=== PATIENT | female | born 1970 | race Caucasian/White ===

== ENCOUNTER 2022-03-21 07:42 | Emergency (ER) | payer OTHER, SELFPAY ==
--- NOTE | ~2022-03-21 | XR_ITS ---
EXAMINATION: XR shoulder LT min 2V DATE: 03/21/2022 08:13 INDICATION: Left shoulder pain. TECHNIQUE: 4 views of left shoulder were obtained. COMPARISON: Left shoulder radiographs 08/24/2016 FINDINGS: Bone alignment is normal. No fracture. There is mild osteoarthritis of glenohumeral joint a nd acromioclavicular joint. IMPRESSION: 1. Mild polyarticular osteoarthritis. Reviewed, dictated and finalized at location A. MENT IMAGING SPECIALIST
[2022-03-21 07:49] VITALS: BP 159/95; PULSE 72; RESP 14; TEMP 36.1; O2SAT 100
--- NOTE | 2022-03-21 07:56 | ED.EXTPRO ---
HPI - Extremity Problem General Chief complaint: Extremity Injury, Upper Stated complaint: L SHOULDER/ARM INJURY S/P FALL Time Seen by Provider: 03/21/22 07:44 History of Present Illness HPI Narrative: 52-year-old female presented to the emergency department for evaluation of left shoulder pain. Patient reports she had a ground-level fall this morning caused by tripping over the dogs resulting in a left arm injury. Patient denies striking her head denies any loss of consciousness. Patient reports a prior history of a partial rotator cuff tear in one of her shoulders, she is unsure which one. Patient has had previous follow-up with orthopedic physician at [facility]. Patient did take ibuprofen for pain control prior to arrival. Related Data Allergies Allergy/AdvReac Type Severity Reaction Status Date / Time cefuroxime Allergy Unknown Verified 11/11/10 12:30 Penicillins Allergy Unknown Verified 05/24/17 14:53 Review of Systems Review of Systems: CONSTITUTIONAL: Denies fever, chills, or sweats. EYES: Denies visual changes, redness, or discharge. ENT: Denies rhinorrhea, congestion, sore throat, or otalgia. CARDIOVASCULAR: Denies chest pain, palpitations, or edema. RESPIRATORY: Denies cough or dyspnea. GASTROINTESTINAL: Denies abdominal pain, nausea, vomiting, or diarrhea. GENITOURINARY: Denies dysuria or hematuria. SKIN: Denies rash or itching. MUSCULOSKELETAL: Left shoulder pain NEUROLOGIC: Denies headache, numbness, or weakness. [facility] Family History Family History (Updated 05/24/17 @ 14:55 by DOCTOR UNKNOWN) Grandparent Diabetes mellitus Acute myocardial infarction Carcinoma of colon Family history of coronary artery disease Social History Social History Smoking status: Never smoker Alcohol intake: current Exam Narrative: APPEARANCE: Well appearing, no pain, no distress, well-nourished. HEAD: normocephalic, atraumatic. EYES: PERRLA/EOMI, conjunctivae clear. NOSE: Normal no drainage NECK: Supple. No adenopathy, no masses. RESPIRATORY: Airway patent, respirations nonlabored. Clear to auscultation bilaterally, no rales, rhonchi, wheezing. CARDIOVASCULAR: Regular rate and rhythm without murmurs rubs or gallops. ABDOMINAL: Soft, nontender, nondistended, normal bowel sounds MUSCULOSKELETAL: No tenderness to wrist elbow or humerus, left shoulder deformity. Neurovascular intact NEURO: Alert. Cranial nerves II through XII intact. Good gait. Good coordination SKIN: Warm, dry. Normal Color Course Course Emergency Course: X-ray was ordered to rule out acute fracture or dislocation. X-ray showed no acute fracture or dislocation. Patient took ibuprofen prior to arrival and while patient was here she does continue to feel improved. Patient does have limited active range of motion of the left arm and full range of motion with passive movement. Suspected rotator cuff injury due to patient's history and negative films. Patient was encouraged to have close follow-up with her orthopedic physician. Patient was provided a pop sling for comfort. Patient was also informed to take Tylenol and ibuprofen for pain control and was provided Flexeril for muscle spasm. Vital Signs Vital signs: Vital Signs Temperature 97 F L 03/21/22 07:49 Pulse Rate 72 03/21/22 07:49 Respiratory Rate 14 03/21/22 07:49 Blood Pressure 159/95 H 03/21/22 07:49 Pulse Oximetry 100 03/21/22 07:49 Oxygen Delivery Room Air 03/21/22 07:49 Temperature 97 F L 03/21/22 07:49 Pulse Rate 72 03/21/22 07:49 Respiratory Rate 14 03/21/22 07:49 Blood Pressure 159/95 H 03/21/22 07:49 Pulse Oximetry 100 03/21/22 07:49 Oxygen Delivery Room Air 03/21/22 07:49 Discharge Plan Discharge Clinical Impression: Injury of shoulder Qualifiers: Encounter type: initial encounter Laterality: left Qualified Code(s): S49.92XA - Unspecified injury of left shoulder and upper arm, initial encounter Patient Disposi
[2022-03-21] MEDS: CYCLOBENZAPRINE HCL 10 MG TABLET PO (09:17)
== END 2022-03-21 09:29 | disposition home or self-care (01) ==
PROVIDERS: Emergency Provider Emergency Medicine
DX: S49.92XA Unspecified injury of left shoulder and upper arm, initial encounter (principal); W01.0XXA Fall on same level from slipping, tripping and stumbling without subsequent striking against object, initial encounter
CPT/HCPCS: 73030; 99283; A4565; A9270

== ENCOUNTER 2022-03-22 16:46 | Emergency (ER) | payer OTHER, SELFPAY ==
--- NOTE | ~2022-03-22 | XR_ITS ---
EXAM: XR shoulder LT min 2V DATE: 03/22/2022 17:08 HISTORY: in er yesterday with shoulder dislocation/ arm out again . COMPARISON: 03/21/2022. FINDINGS: Normal mineralization. Anterior and inferior dislocation of the left humeral head relative to the glenoid. No fracture. No lytic or blastic lesion. Mild AC joint and glenohumeral joint osteoa rthritis. No erosion or periosteal change. Soft tissues within normal limits. IMPRESSION: Anterior left shoulder dislocation. Reviewed, dictated and finalized at location K. IGURATION MANAGEMENT CONSULTANT
[2022-03-22 16:50] VITALS: BP 172/97; PULSE 60; RESP 16; TEMP 35.9; O2SAT 100
--- NOTE | 2022-03-22 17:27 | ED.GENADULT ---
HPI - General Adult General Chief complaint: Extremity Injury, Upper Stated complaint: INJURED L SHOULDER Source: patient Mode of arrival: ambulatory Limitations: no limitations History of Present Illness HPI narrative: Patient presents for evaluation of left shoulder pain. Yesterday she fell after tripping over her dog while her arms were outstretched. She was seen in the emergency department at [facility] after the fall. She thought she had a shoulder dislocation. X-ray showed mild polyarticular osteoarthritis without fracture or dislocation. She was placed in a sling and discharged home. Today she was lifting her arms up over her head in an attempt to perform exercises for suspected rotator cuff injury. At that time she suspects she dislocated her left shoulder. Since that time she has experienced 10/10 pain in the affected joint. She has decreased range of motion. She is right-hand dominant. No additional complaints or concerns.. Related Data Allergies Allergy/AdvReac Type Severity Reaction Status Date / Time cefuroxime Allergy Unknown Hives Verified 03/22/22 16:54 Penicillins Allergy Unknown Hives Verified 03/22/22 16:54 Review of Systems Review of Systems: CONSTITUTIONAL: Denies fever, chills, or sweats. EYES: Denies visual changes, redness, or discharge. ENT: Denies rhinorrhea, congestion, sore throat, or otalgia. CARDIOVASCULAR: Denies chest pain, palpitations, or edema. RESPIRATORY: Denies cough or dyspnea. GASTROINTESTINAL: Denies abdominal pain, nausea, vomiting, or diarrhea. GENITOURINARY: Denies dysuria or hematuria. SKIN: Denies rash or itching. MUSCULOSKELETAL: reports left shoulder pain with associated decreased range of motion. NEUROLOGIC: Denies headache, numbness, dizziness, or weakness. PSYCHIATRIC: Denies anxiety or depression. [facility] Past Medical History Medical History Rotator cuff injury Surgical History Surgical History History of repair of rotator cuff Family History Family History Grandparent Diabetes mellitus Acute myocardial infarction Carcinoma of colon Family history of coronary artery disease Social History Social History Smoking status: Never smoker Alcohol intake: current Living arrangements: with family Gender identity (if verbalized by the patient): Female Sexual Orientation (if Verbalized by the Patient): Straight or Heterosexual Spiritual care concerns: No Exam Narrative: GENERAL: Well-appearing, well-nourished, and in no acute distress. HEAD: Normocephalic, atraumatic. EYES: PERRLA and EOMI. ENT: Nares clear, no rhinorrhea or epistaxis. Mucous membranes moist. Oropharynx without tonsillar hypertrophy exudate or other lesions. Bilateral TMs pearly mason nonbulging NECK: Supple. No adenopathy or masses. No carotid bruits or JVD CHEST: Clear to auscultation. No respiratory distress. No wheezes rales or rhonchi HEART: Regular rate and rhythm. No murmur heard. Normal peripheral pulses. ABDOMEN: Soft, nontender, nondistended, normal active bowel sounds. EXTREMITIES:She is guarding the left upper extremity. She has decreased active range of motion of the left upper extremity at the shoulder joint. Further exam limited 2/2 pain SKIN: Warm, dry, no rash. NEURO: No focal deficits. Alert and oriented x3. PSYCH: anxious Course Course Emergency Course: This is a 52-year-old female who presented for evaluation of left shoulder pain with associated decreased range of motion. X-ray shows anterior left shoulder dislocation. I did offer to attempt to reduce it here but did not have analgesia to offer patient outside of Toradol. I recommended she go to the emergency department for further evaluation and treatment. Nyasia
== END 2022-03-22 17:20 | disposition short-term general hospital (02) ==
PROVIDERS: Emergency Provider Nurse Practitioner
DX: S43.015A Anterior dislocation of left humerus, initial encounter (principal); X58.XXXA Exposure to other specified factors, initial encounter
CPT/HCPCS: 73030; 99213; G0463

== ENCOUNTER 2022-03-22 17:37 | Emergency (ER) | payer OTHER, SELFPAY ==
--- NOTE | ~2022-03-22 | XR_ITS ---
EXAM: XR shoulder LT min 2V DATE: 03/22/2022 18:09 HISTORY: reduction . COMPARISON: Same date at 5:08 PM and 03/21/2022 at 8:07 AM. FINDINGS/IMPRESSION: Successful interval left shoulder reduction. No osseous fracture detected. Reviewed, dictated and finalized at location K. TIVE WRITING PROFESSOR
[2022-03-22 18:09] VITALS: BP 157/89; PULSE 102; RESP 16; O2SAT 100
--- NOTE | 2022-03-22 18:43 | ED.GENADULT ---
HPI - General Adult General Chief complaint: Extremity Injury, Upper Stated complaint: left shoulder dislocation Time Seen by Provider: 03/22/22 17:48 History of Present Illness HPI narrative: Patient is a 52-year-old female who presents ER with shoulder dislocation. Diagnosed on x-ray at the urgent care. Reports she was performing shoulder exercises due to an injury yesterday when she had sudden onset pain and decreased range of motion. No fevers chills or sweats. No numbness or tingling. No additional concerns. Related Data Allergies Allergy/AdvReac Type Severity Reaction Status Date / Time cefuroxime Allergy Unknown Hives Verified 03/22/22 16:54 Penicillins Allergy Unknown Hives Verified 03/22/22 16:54 Review of Systems Musculoskeletal: Musculoskeletal: Reports arthralgias and Denies joint swelling Neurologic: Denies focal weakness and Denies numbness PMFSH Past Medical History Medical History Rotator cuff injury Surgical History Surgical History History of repair of rotator cuff Family History Family History Grandparent Diabetes mellitus Acute myocardial infarction Carcinoma of colon Family history of coronary artery disease Social History Social History Smoking status: Never smoker Alcohol intake: current Living arrangements: with family Gender identity (if verbalized by the patient): Female Sexual Orientation (if Verbalized by the Patient): Straight or Heterosexual Spiritual care concerns: No Exam Narrative: GENERAL: Well-appearing, well-nourished, and in no acute distress. HEAD: Normocephalic, atraumatic. HEART: Regular rate and rhythm. Normal peripheral pulses. EXTREMITIES: Focused exam of left shoulder reveals normal range of motion without deformity and no tenderness. No bruising or redness of the shoulder. Neurovascular intact distal to the left shoulder. SKIN: Warm, dry, no rash. NEURO: Alert and oriented x3. PSYCH: Normal mood and affect. Course Course Emergency Course: Shoulder seems to have reduced on its own. Placed in shoulder immobilizer. Discussed need for follow-up with orthopedic surgery for further evaluation. Patient verbalized understanding. Patient does not require any additional pain medication for home Vital Signs Vital signs: Vital Signs Pulse Rate 102 H 03/22/22 18:09 Respiratory Rate 16 03/22/22 18:09 Blood Pressure 157/89 H 03/22/22 18:09 Pulse Oximetry 100 03/22/22 18:09 Oxygen Delivery Room Air 03/22/22 18:09 Pulse Rate 102 H 03/22/22 18:09 Respiratory Rate 16 03/22/22 18:09 Blood Pressure 157/89 H 03/22/22 18:09 Pulse Oximetry 100 03/22/22 18:09 Oxygen Delivery Room Air 03/22/22 18:09 Medical Decision Making Vital Signs Vital Signs: Vital Signs Pulse Rate 102 H 03/22/22 18:09 Respiratory Rate 16 03/22/22 18:09 Blood Pressure 157/89 H 03/22/22 18:09 Pulse Oximetry 100 03/22/22 18:09 Oxygen Delivery Room Air 03/22/22 18:09 Pulse Rate 102 H 03/22/22 18:09 Respiratory Rate 16 03/22/22 18:09 Blood Pressure 157/89 H 03/22/22 18:09 Pulse Oximetry 100 03/22/22 18:09 Oxygen Delivery Room Air 03/22/22 18:09 Imaging Data Radiologist's impression: DATE: 03/22/2022 18:09 HISTORY: reduction . COMPARISON:? Same date at 5:08 PM and 03/21/2022 at 8:07 AM. FINDINGS/IMPRESSION: Successful interval left shoulder reduction. No osseous fracture detected. Discharge Plan Discharge Clinical Impression: Closed dislocation of left shoulder Patient Disposition: Home, Self-Care Condition: Stable Instructions: Shoulder Dislocation (ED), Shoulder Immobilizer (ED) Additional Instructions: Adela your shoulder immobilizer and follow-u
[2022-03-22 19:27] VITALS: BP 111/57; PULSE 66; RESP 18; O2SAT 99
== END 2022-03-22 19:28 | disposition home or self-care (01) ==
LOC: ANHED 18:46
PROVIDERS: Emergency Provider Emergency Medicine
DX: S43.005A Unspecified dislocation of left shoulder joint, initial encounter (principal); X50.9XXA Other and unspecified overexertion or strenuous movements or postures, initial encounter
CPT/HCPCS: 73030; 99283

== ENCOUNTER 2024-04-16 09:25 | Emergency (ER) | payer OTHER, SELFPAY ==
[2024-04-16] VITALS (13 sets, daily range): BP systolic 115–142; BP diastolic 77–99; PULSE 55–80; RESP 14–21; TEMP 36.5; O2SAT 97–100
--- NOTE | ~2024-04-16 | XR_ITS ---
XR chest 2V Ordering provider: Patrick Luz MD History: 54 years Female with . POSTERIOR CHEST PAIN TRAVELED ANTERIOR TODAY, CHILLS STARTED . Comparison: May 11, 2007 FINDINGS: MEDIASTINUM: The cardiac silhouette is not enlarged. LUNGS: No infiltrates, effusions or pneumothorax. OTHER: No free air under the diaphragm. IMPRESSION: No acute cardiopulmonary pathology. Reviewed, dictated and finalized at location A.
--- NOTE | 2024-04-16 09:29 | ECG_ITS ---
Test Date: 2024-04-16 09:36:44 Measurements Intervals [place] Rate: 61 P: 60 AL: 132 QRS: 18 QRSD: 82 T: 9 QT: 419 QTc: 425 Interpretive Statements SINUS RHYTHM WITH SINUS ARRHYTHMIA NONSPECIFIC ST AND T WAVE ABNORMALITY No previous ECG available for comparison Electronically Signed On 04-16-2024 14:58:47 CDT by Henrik Ochoa M.D.
[2024-04-16 09:57] LABS: Hematocrit 44.7 % (37.0-47.0); Immature Granulocyte Absolute 0.01 K/mm3 (0.00-0.031); Immature Granulocyte Percent A 0.3 % (0-0.5); Lymphocytes Absolute Auto 1.21 K/mm3 (0.9-3.2); Lymphocytes Percent Auto 31.2 % (18.3-44.2); Mean Corpuscular HGB Conc 33.6 g/dl (32-36); Mean Corpuscular Hemoglobin 30.1 pg (26-34); Mean Corpuscular Volume 89.8 fl (80-100); Mean Platelet Volume 9.8 fl (7.4-10.4); Monocytes Absolute Auto 0.4 K/mm3 (0.1-0.6); Monocytes Percent Auto 10.1 % (2.6-8.5); Neutrophils Absolute Auto 2.2 K/mm3 (1.3-6.7); Neutrophils Percent Auto 56.4 % (45.5-73.1); Platelet Count Result 255 k/mm3 (150-375); Red Blood Count 4.98 M/mm3 (4.2-5.4); Red Cell Distribution Width 13.3 % (11.5-14.5); White Blood Count 3.9 K/mm3 (4.5-10.0)
[2024-04-16 10:12] LABS: Alanine Aminotransferase 37 U/L (6-35); Alkaline Phosphatase 76 U/L (38-126); Anion Gap 13 mmol/L (4-12); Aspartate Amino Transferase 37 U/L (14-36); Bilirubin,Total 0.8 mg/dL (0.2-1.3); Blood Urea Nitrogen 17 mg/dL (7-17); Calcium 9.7 mg/dL (8.4-10.2); Carbon Dioxide 28 mmol/L (22-30); Chloride 99 mmol/L (98-107); Estimated CRCL calculation 58 ml/min; Estimated Glomerular Filt Rate > 60; Glucose 107 mg/dL (65-110); Potassium 3.9 mmol/L (3.4-5.0); Sodium 140 mmol/L (137-145)
--- OUTSIDE RECORDS SUMMARY | 2024-04-16 10:13 | XMS_ITS | Referral Summary ---
Author Organization [facility] Address [address] [place] [address] Care Team Providers Care Technician Test Systems Name Role Phone Сергей Cota MD Primary Care Provider Encounters Date Type Department Care Team Description 03/12/2024 Telephone [facility] Ob[facility]s [facility] Gynecology [address] [place] [address] Marielena Pereira Scheduling Appointments (/) 02/23/2024 Orders Only [facility] [address] [facility] 7th Floor [address] [place] [address] Rikki Alvarado RN Abnormal mammogram (Primary Dx) 01/26/2024 3:00 PM FUNERAL PRE ARRANGEMENT SPECIALIST Office Visit [facility] Obstetrics [facility] Gynecology [address] [facility] 1st Floor [address] [place] [address] Xiao Gaxiola MD Abnormal mammogram (Primary Dx) 01/22/2024 [facility] [address] [facility] [address] [facility] [place] [address] Сергей Cota MD Lab Results from Last 3 Months Allergies Active Allergy Reactions Criticality Noted Date Comments Cefazolin Unknown 10/31/2017 Cephalexin Rash Medium 10/31/2017 Penicillins Rash Medium Medications mmbfnqpj-lggh-e in-folic acid 18-0.4 mg tabletIndicatio ns:Mineral Deficiency Prevention,Ana min Deficiency Prevention Take 1 tablet by mouth nightly. Active calcium citrate malate-vit D3 250-100 mg-unit tabletIndicatio ns:Vitamin D Deficiency Take 1 tablet by mouth nightly. Active sodium chloride (OCEAN) 0.65 % nasal sprayIndication s:Dry Nose Administer 1 spray into each nostril as needed Active vitamin E (AQUASOL E) 400 unit capsule 9 Active vitamin B complex capsule 9 Active lysine 500 mg tablet 9 Active biotin 10 mg tablet 9 Active Active Problems Problem Noted Date Diagnosed Date Class 1 obesity without seri ous comorbidity with body mass index (BMI) of 31.0 to 31.9 in adult 07/11/2023 Assessment & Plan (07/11/2023 10:16 AM CDT): Weight increasing despite diet and exercise. We discussed medical options for weight loss. We decided to start Zepbound 2.5 mg weekly. We discussed efficacy and possible side effects, including hypoglycemia. We can increase the dose every 4 weeks as tolerated if she has not lost 10 lbs or more. Hyperlipidemia 07/28/2022 Assessment & Plan (07/11/2023 10:15 AM CDT): Lipids have improved. Low ASCVD risk. No need for pharmacotherapy. Assessment & Plan (07/28/2022 12:44 PM CDT): Her 10-year risk of ASCVD is 1.9% per the ACC/AHA risk calculator, which is considered low risk. No compelling indication for a statin at this time. Recommend low fat, low cholesterol diet and exercise at least 30 minutes per day, 5 days per week. Encounter for health maintenance examination in adult 03/09/2022 Assessment & Plan (03/09/2022 4:03 PM FUNERAL PRE ARRANGEMENT SPECIALIST): Recommend healthy diet and regular exercise. Discussed immunization against tetanus, influenza and COVID-19. Discussed screening for cervical cancer. She has been following up with OBGYN. Reviewed Pap smear from 04/2021. Discussed screening for colon cancer here discussed screening for breast cancer. Screening for diabetes mellitus 03/09/2022 Assessment & Plan (03/09/2022 4:03 PM FUNERAL PRE ARRANGEMENT SPECIALIST): Discussed screening for diabetes Screening for colon cancer 03/09/2022 Assessment & Plan (03/09/2022 4:04 PM FUNERAL PRE ARRANGEMENT SPECIALIST): Discussed screening for colon cancer. Ordering a colonoscopy. Factor V Leiden carrier 03/09/2022 Overweight 03/09/2022 Assessment & Plan (03/09/2022 4:04 PM FUNERAL PRE ARRANGEMENT SPECIALIST): Recommend weight loss through healthy diet and regular exercise. Recommended dietitian referral. We will follow-up with A1c. She is interested in medication for weight loss. Postoperative pain after spinal surgery 03/08/19 19 Abnormal mammogram 12/11/2017 Assessment & Plan (01/26/2024 3:49 PM FUNERAL PRE ARRANGEMENT SPECIALIST): Pt with history of abnormal MMGs and questioning the utility of routine screening MMGs due to persistent reads of having heterogenously dense breasts. Apr 2021 last MMG ordered as a Dx MMG The breasts are heterogenously dense, which may obscure small masses.Otherwise, normal imaging at this time. S/p R core needle bx: 2018 the RIGHT breast demonstrates breast tissue with fibrotic apocrine lined cyst and adjacent fibrosis and fat necrosis. Will confirm with breast health ctr what screening modality would be the best option for this patient to consider since she is very reluctant to desire a screening MMG that will inevitably return back abnormal and then will require a Dx MMG. Lumbar radiculopathy 12/08/2017 Overview (12/08/2017): Added automatically from request for surgery [id number] DDD (degenerative disc disease), lumbar 12/09/19 18 Overview (12/08/2017): Added automatically from request for surgery [id number] Spondylolisthesis of lumbosacral region 11/11/19 18 Overview (11/10/2017): Added automatically from request for surgery [id number] Annular tear of lumbar disc 10/31/2017 Chronic bilateral low back pain without sciatica 10/31/2017 Discogenic low back pain 10/31/2017 Other chronic pain 10/31/2017 Factor V Leiden 01/08/2013 Assessment & Plan (03/09/2022 4:03 PM FUNERAL PRE ARRANGEMENT SPECIALIST): She has a family history of factor 5 laden deficiency. 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 Immunizations Immunization Administration Dates Next Due Influenza, Quadrivalent, Spl it, Preservative Free, Intramuscular 12/01/2021,11/24/2020 Influenza, Unspecified 01/08/2013 Tdap 03/09/2022 ZOSTER Recombinant 02/01/2022,12/01/2021 Social History Tobacco Use Types Packs/Day Years Used Date Smoking Tobacco: Never Smokeless Tobacco: Never Tobacco Cessation:Counseling Given: Not Answered Alcohol Use Standard Drinks/Week Comments Yes 0 (1 standard drink = 0.6 oz pur e alcohol) twice a month AUDIT-C Answer Date Recorded Q1: How often do you have a drink containing alc ohol? 2-4 times a month 11/30/2022 Q2: How many drinks containi ng alcohol do you have on a typical day when you are drinking? 1 or 2 11/30/2022 Q3: How often do you have si x or more drinks on one occasion? Never 11/30/2022 PHQ-2 Answer Date Recorded PHQ-2 Total Score (If total score is 3 or more points, staff should administer the PHQ-9) 0 03/09/2022 Personal Safety Answer Date Recorded Have you ever been in or are you currently in a harmful physical or emotional relationship or is someone making you feel afraid or unsafe? Denies 11/30/2022 Comments No Sex and Gender Information Value Date Recorded Sex Assigned at Not on file Legal Sex Female 11:23 AM FUNERAL PRE ARRANGEMENT SPECIALIST Gender Identity Not on file Sexual Orientation Not on file Last Filed Vital Signs Vital Sign Reading Time Taken Comments Blood Pressure 118/81 01/26/2024 2:51 PM FUNERAL PRE ARRANGEMENT SPECIALIST Pulse 64 01/26/2024 2:51 PM FUNERAL PRE ARRANGEMENT SPECIALIST Temperature 36.2 C (97.2 F) 11/30/2022 1:05 PM CDT Respiratory Rate 16 03/06/2018 8:45 AM FUNERAL PRE ARRANGEMENT SPECIALIST Oxygen Saturation 99% 11/17/2023 9:58 AM CDT Inhaled Oxygen Concentration - - Weight 59.7 kg (131 lb 9.6 oz) 01/26/2024 2:51 P M FUNERAL PRE ARRANGEMENT SPECIALIST Height 160 cm (5' 2.99 ) 01/26/2024 2:51 PM FUNERAL PRE ARRANGEMENT SPECIALIST Body Mass Index 23.32 01/26/2024 2:51 PM FUNERAL PRE ARRANGEMENT SPECIALIST Plan of Treatment Scheduled Procedures Name Priority Associated Diagnoses Date/Ti az COLONOSCOPY Colon cancer screening COLONOSCOPY Colon cancer screening Medical Devices Implanted Type Area Opinion Polls Survey Worker Device Identifier Shelf Expiration Date Model / Serial / Lot Medtronic Sofamor Danek [id number] Mastergraft Block Void Filler Substitute 20ml Bone Graft Matrix - [id number] Implanted:Qty: 1 on 03/01/2018 by Reji Marinelli MD at [facility] N/A: Spine Lumbar Medtronic Sofamor Danek [id number] 02/06/2020 [id number] / / [id number] Medtronic Inc [id number] 8.5mm 70mm Multiaxial Cannulated Thoracolumbar Screw Bone - [id number] Implanted:Qty: 1 on 03/01/2018 by Reji Marinelli MD at [facility] N/A: Spine Lumbar Medtronic Inc [id number] / / Medtronic Sofamor Danek [id number] Infuse 18mm 26mm Absorbable Sponge Sterile Water Syringe Needle - [id number] Implanted:Qty: 1 on 03/01/2018 by Reji Marinelli MD at [facility] N/A: Spine Lumbar Medtronic Sofamor Danek 07/07/2019 [id number] / / [id number] Medtronic Sofamor Danek [id number] Infuse 18mm 26mm Absorbable Sponge Sterile Water Syringe Needle - [id number] Implanted:Qty: 1 on 03/01/2018 by Reji Marinelli MD at [facility] N/A: Spine Lumbar Medtronic Sofamor Danek 07/07/2019 [id number] / / [id number] [employer] [id number] - [id number] - [id number] Implanted:Qty: 1 on 03/01/2018 by Reji Marinelli MD at [facility] N/A: Spine Lumbar [employer] 01/12/2023 [id number] / [id number] / Medtronic Sofamor Danek [id number] Solera Cd Horizon 6.5mm 50mm Multiaxial Spine Screw Bone Cocr - [id number] Implanted:Qty: 5 on 03/01/2018 by Reji Marinelli MD at [facility] N/A: Spine Lumbar Medtronic Sofamor Danek [id number] / / Medtronic Sofamor Danek [id number] 5.5mm 55mm Multiaxial Spine Screw Bone Cocr 5.5mm Demetrius - [id number] Implanted:Qty: 1 on 03/01/2018 by Reji Marinelli MD at [facility] N/A: Spine Lumbar Medtronic Sofamor Danek [id number] / / Medtronic Sofamor Danek [id number] Cd Horizon Break Off Spinal Screw Set Titanium Nonsterile 5.5 Mm - [id number] Implanted:Qty: 7 on 03/01/2018 by Reji Marinelli MD at [facility] N/A: Spine Lumbar Medtronic Sofamor Danek [id number] / / Medtronic Sofamor Danek [id number] Cd Horizon 5.5mm 500mm Line Straight Demetrius Spinal Titanium - [id number] Implanted:Qty: 1 on 03/01/2018 by Reji Marinelli MD at [facility] N/A: Spine Lumbar Medtronic Sofamor Danek [id number] / / Explanted Type Area Opinion Polls Survey Worker Device Identifier Shelf Expiration Date Model / Serial / Lot Medtronic Sofamor Danek [id number] Solera Cd Horizon 6.5mm 55mm Multiaxial Spine Screw Bone Cocr - [id number] Explanted:Qty: 1 on 03/01/[address] [facility] N/A: Spine Lumbar Medtronic Sofamor Danek [id number] / / Procedures Procedure Name Priority Date/Time Associated Diagnosis Comments THYROID FUNCTION CASCADE Routine 01/19/2024 8:58 AM FUNERAL PRE ARRANGEMENT SPECIALIST Hyperlipidemia, unspecified hyperlipidemia type COMPREHENSIVE METABOLIC PANEL Routine 01/19/2024 8:58 AM FUNERAL PRE ARRANGEMENT SPECIALIST Hyperlipidemia, unspecified hyperlipidemia type COLONOSCOPY 11/30/2022 12:27 PM CDT DIAGNOSTIC MAMMOGRAM BILATERAL W LISSETTE Schedule Routine, Read Routine (OP Routine) 06/11/2021 11:07 AM CDT Dense breast tissue on mammogram PAP AND HIGH RISK HPV, REFLEX TO GENOTYPING Routine 04/29/2021 10:45 AM CDT Routine gynecological examination from Last 3 Months or Most Recently Relevant to Health Maintenance Results * Thyroid Function [place] (01/19/2024 8:58 AM FUNERAL PRE ARRANGEMENT SPECIALIST) Pathologist [facility] TSH 1.850 0.450 - 4.500 uIU/mL [facility] - 01 Comment: No apparent thyroid disorder. Additional testing not indicated. In rare instances, Secondary Hypothyroidism as well as Subclinical Hypothyroidism have been reported in some patients with normal TSH values. Blood 01/19/2024 8:58 AM FUNERAL PRE ARRANGEMENT SPECIALIST 01/19/2024 Narrative [facility] - 01/20/2024 8:12 AM FUNERAL PRE ARRANGEMENT SPECIALIST Performed at: [address] [place], [place] [id number] Rock Mason Apprentice: Amor Case PhD, Phone: [phone] us Madeline Juarez AIR LIAISON AND SPECIAL STAFF LAB BLOOD ORDERABLES Final Re sult [facility] - 01 * Comprehensive metabolic panel (01/19/2024 8:58 AM FUNERAL PRE ARRANGEMENT SPECIALIST) Pathologist [facility] Glucose 96 70 - 99 mg/dL [facility] - 01 BUN 16 6 - 24 mg/dL [facility] - 01 Creatinine, Serum 0.89 0.57 - 1.00 mg/dL [facility] - 01 eGFR 77 >59 mL/min/1.73 [facility] - 01 BUN/creat ratio 18 9 - 23 [facility] - 01 Sodium 141 134 - 144 mmol/L [facility] - 01 Potassium, sr 3.9 3.5 - 5.2 mmol/L [facility] - 01 Chloride 103 96 - 106 mmol/L [facility] - 01 CO2 24 20 - 29 mmol/L [facility] - 01 Calcium 9.7 8.7 - 10.2 mg/dL [facility] - 01 Protein, sr 6.5 6.0 - 8.5 g/dL [facility] - 01 Albumin 4.7 3.8 - 4.9 g/dL [facility] - 01 Globulin, Total 1.8 1.5 - 4.5 g/dL [facility] - 01 Bilirubin, Total 0.3 0.0 - 1.2 mg/dL [facility] - 01 Alk phos 71 44 - 121 IU/L [facility] - 01 AST 30 0 - 40 IU/L [facility] - 01 ALT 28 0 - 32 IU/L [facility] - 01 Blood 01/19/2024 8:58 AM FUNERAL PRE ARRANGEMENT SPECIALIST 01/19/2024 Narrative [facility] - 01/20/2024 8:12 AM FUNERAL PRE ARRANGEMENT SPECIALIST Performed at: 01 - [facility] [id number] Rock Mason Apprentice: Amro Case PhD, Phone: [phone] us Madeline Juarez AIR LIAISON AND SPECIAL STAFF LAB BLOOD ORDERABLES Final Re sult [facility] - 01 * COLONOSCOPY (11/30/2022 12:27 PM CDT) Anatomical Region Laterality Modality Other Narrative Procedure Note Miles Lopez MD - 11/30/2022 12:27 PM CDT ENDOSCOPY LAB Patient Name: Humaira English Procedure Date: 11/30/2022 12:27PM Date of : 1970 Admit Type: Outpatient Age: 52 Gender: Female Attending MD: Miles Lopez M.D. Room: [facility] ENDOSCOPY ROOM 03 Note Status: Finalized Procedure: Colonoscopy Indications: Screening for colorectal malignant neoplasm, Thisis the patient's first colonoscopy Providers: Miles Lopez M.D. Referring MD: Kirk Bean M.D. Medicines: Monitored Anesthesia Care Complications: No immediate complications. Estimated Blood Loss: Estimated blood loss: none. Procedure: Pre-Anesthesia Assessment: - Prior to the procedure, a History and Physicalwas performed, and patient medications, allergies and sensitivities were reviewed. The patient'stolerance of previous anesthesia was reviewed. - The risks and benefits of the procedure and the sedation options and risks were discussed with the patient. All questions were answered and informed consent was obtained. - Immediately prior to administration ofmedications, the patient was re-assessed for adequacy to receive sedatives. The benefits, risks and alternatives of theprocedure and sedation were discussed and informed consentwas obtained. All questions were answered. Please referto the signed informed consent document in the medical record. The scope was passed under direct vision.The [id number] was introduced through the anusand advanced to the terminal ileum. The colonoscopy was performed without difficulty. The patient tolerated the procedure well. The quality of the bowel preparation was evaluated using the BBPS (BostonBowel Preparation Scale) with scores of: Right Colon = 3, Transverse Colon = 3 and Left Colon = 3 (entiremucosa seen well with no residual staining, smallfragments of stool or opaque liquid). The total BBPS score equals 9. Findings: The terminal ileum appeared normal. Multiple diverticula were found in the sigmoid colon. Internal hemorrhoids were found during retroflexion. The hemorrhoids were small and Grade I (internal hemorrhoids that do not prolapse). The exam was otherwise without abnormality. Impression: - The examined portion of the ileum was normal. - Diverticulosis in the sigmoid colon. - Internal hemorrhoids. - The examination was otherwise normal. - No specimens collected. Recommendation: - Repeat colonoscopy in 10 years for screening purposes. - Contact Information: During normal business hours - [facility] [facility]: [phone] After hours, evening, nights, weekends and holidays- Please call the hospital cold roll operator at and ask for the GI fellow talent acquisition associate. Attending Participation: I personally performed the entire procedure. Electronically signed by Miles Lopez MD Miles Lopez M.D. 11/30/2022 1:11:08 PM Number of Addenda: 0 Note Initiated On: 11/30/2022 12:27 PM Miles Lopez MD ENDOSCOPY PROCEDURES Final Result * DIAGNOSTIC MAMMOGRAM BILATERAL W LISSETTE (06/11/2021 11:07 AM CDT) Anatomical Region Laterality Modality Breast Bilateral Mammography 06/11/2021 11:1 3 AM CDT Impressions 06/11/2021 11:13 AM CDT No mammographic evidence of malignancy in EITHER breast. OVERALL FINAL ASSESSMENT: BI-RADS Category 1: Negative. RECOMMENDATION: Recommend return to annual screening mammography in 12 months. Electronically signed by: Lyndon Moore MD Narrative 06/11/2021 11:13 AM CDT EXAMINATION: BILATERAL DIGITAL DIAGNOSTIC MAMMOGRAM INCLUDING CAD AND BILATERAL DIGITAL BREAST TOMOSYNTHESIS HISTORY: 51-year-old woman presents for annual mammogram. She reports no concerns today. Her clinician ordered a BILATERAL diagnostic mammogram in case additional views were needed as the patient is heterogeneously dense and has a history of BILATERAL breast cysts. COMPARISON: Prior mammograms dating back to 11/21/2017 TECHNIQUE: Full field digital mammographic views of BOTH breasts were performed, including computer aided detection (CAD) and BILATERAL digital breast tomosynthesis (DBT). BREAST PARENCHYMAL COMPOSITION: The breasts are heterogenously dense, which may obscure small masses. MAMMOGRAM FINDINGS: There are no suspicious masses, areas of architectural distortion or malignant appearing calcifications identified in EITHER breast. Procedure Note Lyndon Moore MD - 06/11/2021 EXAMINATION: BILATERAL DIGITAL DIAGNOSTIC MAMMOGRAM INCLUDING CAD AND BILATERAL DIGITAL BREAST TOMOSYNTHESIS HISTORY: 51-year-old woman presents for annual mammogram. She reports no concerns today. Her clinician ordered a BILATERAL diagnostic mammogram in case additional views were needed as the patient is heterogeneously dense and has a history of BILATERAL breast cysts. COMPARISON: Prior mammograms dating back to 11/21/2017 TECHNIQUE: Full field digital mammographic views of BOTH breasts were performed, including computer aided detection (CAD) and BILATERAL digital breast tomosynthesis (DBT). BREAST PARENCHYMAL COMPOSITION: The breasts are heterogenously dense, which may obscure small masses. MAMMOGRAM FINDINGS: There are no suspicious masses, areas of architectural distortion or malignant appearing calcifications identified in EITHER breast. IMPRESSION: No mammographic evidence of malignancy in EITHER breast. OVERALL FINAL ASSESSMENT: BI-RADS Category 1: Negative. RECOMMENDATION: Recommend return to annual screening mammography in 12 months. Electronically signed by: Lyndon Moore MD us Geraldine Mancini MD IMG MAMMO PROCEDURES Evie l Result * Pap and High Risk HPV, reflex to Genotyping (04/29/2021 10:45 AM CDT) Thin prep (Pap test) 04/29/2021 10:45 AM CDT 05/01/2021 11:01 AM CDT Narrative PATHOLOGY [facility] - 05/04/2021 12:20 PM CDT [facility] results best viewed via link to PDF [address] [address] Tele: Estelita Jacobson MD - Radiologist Diagnostic CYTOLOGY REPORT Note to Patients: This report may contain a detailed description of human tissue sent by a health care provider to the laboratory for pathologic evaluation. The content of this report is essential for diagnosis and may provide important critical findings. This information may be unfamiliar to patients to review without a medical professional present. It is advised that the patient review this report in the presence of a health care provider who can answer questions and explain the details. Patient Name: HUMAIRA ENGLISH. [address]: [address] [place] [address] , [place] [address] Gender: F : 1970 (Age: 51) Service: Location: Hospital #: [id number] Patient Type: [facility] SPECIMEN Taken: 04/29/2021 Reported: 05/04/2021 Physician(s): Geraldine Mancini M.D. FINAL DIAGNOSIS: Specimen Type: - ThinPrep Pap and HPV w/ reflex Genotyping Statement of Specimen Adequacy: Source: Cervical/Endocervical - Satisfactory for interpretation - Endocervical /Transformation Zone component present - Satisfactory for evaluation - Case screened using computer assisted imaging technology General Categorization: - Negative for intraepithelial lesion or malignancy Interpretation: - Atrophic pattern xbb/05/04/2021 12:20 JINNY Alfaro (ASCP) Report Reviewed and Electronically Signed By JINNY Alfaro (ASCP) Clerical Data Follow A; G0145 DIAGNOSIS COMMENT: Ancillary Testing: HPV High Risk Group (16, 18, 31, 33, 35, 39, 45, 51, 52, 56, 58, 59, 66 and 68) - Not Detected Reference Range: Not Detected This test was performed using the VINH 4800 CLINICAL DIAGNOSIS AND HISTORY Menstrual History: Perimenopausal REPORT IMAGES AND/OR SCANNED DOCUMENTS ONLY VIEWABLE IN PDF FORMAT The Pap test is a screening test used to aid in the detection of cervical cancer and its precursors. It should not be the sole means by which malignant and premalignant lesions are diagnosed. Both false negative and false positive results may occur. It also has poor sensitivity for the detection of endometrial lesions and should not be used to evaluate suspected endometrial abnormalities. For these reasons it is most important to obtain Pap tests at regular intervals, as recommended by your physician or nurse practitioner. us Geraldine Mancini MD LAB CYTOLOGY ORDERABLES F inal Result PATHOLOGY [facility] Laboratory Receiving [address] [place] [address] from Last 3 Months or Most Recently Relevant to Health Maintenance Insurance [facility] Address: [address] [place] [address] [facility]O Address: [address] [place], [place] [id number] [facility] [employer] [facility] [facility]/PPO Address: [address] [place] [address] [facility] [employer] [facility] [employer]O Address: [address] [place] [address] Advance Directives For more information, please contact: [phone] * Full Code (Latest Code Status on File) Date Activated Date Inactivated Comments 11/30/2022 11:16 AM 11/30/2022 5:57 PM * Full Code Date Activated Date Inactivated Comments 03/01/2018 11:28 AM 03/06/2018 7:48 PM Care Teams Technician Test Systems Relationship Specialty Start Date End Date Сергей Cota MD [address] [address] PCP - General Endocrinology Diabetes & Metabolism 07/28/22
--- OUTSIDE RECORDS SUMMARY | 2024-04-16 10:13 | XMS_ITS | Data Portability ---
Author Organization [facility] ROCIOJoseph Address [address] [place] [address] Care Team Providers Care Cellar Packer Name Role Phone SOURAV CASSIDY Primary Care Provider Unavailab le Assessment Encounter Date Assessment Date Assessment LastModified by Organization Details LastModified Time 03/11/2024 03/11/2024 11/30/22 Colonoscopy. Diverticulosi s. Mammogram: 2021. they want her to get MRI next. she is in process of deciding coverage for this. [email or web address] Not available 03/11/2024 15:31:44 Plan of Treatment Reminders Order Date Submit Date Provider Last Modified By Organization Details Last Modified Time Details Appointments None recorded. Lab cobalamin and folate panel, serum 2024 025 [facility], [address] [place] [address], [address], 11:07:37 TSH + free T4, serum 2024 025 [facility], [address] [place] [address] 2, [place], [address], 5 11:07:34 iron + total iron-benja ng capacity (TIBC), serum 2024 025 [facility], [address] [place] [address] 2, [place], [address], 5 11:07:38 ferritin, serum or plasma 2024 025 [facility], [address] [place] [address] [facility] 2, [place], [address], 11:07:40 CBC w/ auto diff 2024 025 [facility], [address] [facility] 2, [place], [address], 5 11:07:41 CMP, serum or plasma 2024 025 [facility], [address] [facility] 2, [place], [address], 11:07:36 Referral None recorded. Procedures None recorded. Surgeries None recorded. Imaging None recorded. Medication Orders None recorded. Patient TargetsNo targets recorded. Patient InstructionsNo instructions recorded. Reason for Referral None Reported. Results Created Date Observation Date Name Description Value Unit Range Abnormal Flag Note LastModifiedBy Organization Detail LastModifiedTime 03/20/1903/21/2024 TSH+F REE T4 TSH 1.770 uIU/m L 0.450- 4.500 Not Available [facility] ([facility]) [address] [place], [address], 03/21/2024 11:07:34 03/20/1903/21/2024 TSH+F REE T4 T4,free(dire ct) 1.17 NG/dL 0.82-1 .77 Not Available [facility] ([facility]) [address] [facility], [place], [address], 03/21/2024 11:07:34 03/20/1903/21/2024 CMP14 +EGFR glucose 83 mg/dL 70-99 Not Available [facility] ([facility]) [address] [facility], [place], [address], 03/21/2024 11:07:36 03/20/1903/21/2024 CMP14 +EGFR BUN 12 mg/dL 6-24 Not Available [facility] ([facility]) [address] [place], [address], 03/21/2024 11:07:36 03/20/19 25 03/21/2024 CMP14 +EGFR creatinine 0.80 mg/dL 0.57-1 .00 Not Available [facility] ([facility]) [address] [facility], [place], [address], 03/21/2024 11:07:36 03/20/19 25 03/21/2024 CMP14 +EGFR eGFR 88 mL/mi n/1.7 3 >59 Not Available [facility] ([facility]) [address] [facility], [place], [address], 03/21/2024 11:07:36 03/20/19 25 03/21/2024 CMP14 +EGFR BUN/creatini ne ratio 15 9-23 Not Available [facility] ([facility]) [address] [facility], [place], [address], 03/21/2024 11:07:36 03/20/19 25 03/21/2024 CMP14 +EGFR sodium 143 mmol/ L 134-14 4 Not Available [facility] ([facility]) [address] [facility], [place], [address], 03/21/2024 11:07:36 03/20/19 25 03/21/2024 CMP14 +EGFR potassium 4.2 mmol/ L 3.5-5. 2 Not Available [facility] ([facility]) [address] [place], [address], 03/21/2024 11:07:36 03/20/19 25 03/21/2024 CMP14 +EGFR chloride 103 mmol/ L 96-106 Not Available [facility] ([facility]) [address] [place], [address], 03/21/2024 11:07:36 03/20/19 25 03/21/2024 CMP14 +EGFR carbon dioxide, total 26 mmol/ L 20-29 Not Available [facility] ([facility]) [address] [place], [address], 03/21/2024 11:07:36 03/20/19 25 03/21/2024 CMP14 +EGFR calcium 9.7 mg/dL 8.7-10 .2 Not Available [facility] ([facility]) [address] [facility], [place], [address], 03/21/2024 11:07:36 03/20/19 25 03/21/2024 CMP14 +EGFR protein, total 7.1 g/dL 6.0-8. 5 Not Available [facility] ([facility]) [address] [facility] [place], [address], 03/21/2024 11:07:36 03/20/19 25 03/21/2024 CMP14 +EGFR albumin 4.8 g/dL 3.8-4. 9 Not Available [facility] ([facility]) [address] [place], [address], 03/21/2024 11:07:36 03/20/19 25 03/21/2024 CMP14 +EGFR globulin, total 2.3 g/dL 1.5-4. 5 Not Available [facility] ([facility]) [address] [place], [address], 03/21/2024 11:07:36 03/20/19 25 03/21/2024 CMP14 +EGFR bilirubin, total 0.4 mg/dL 0.0-1. 2 Not Available [facility] ([facility]) [address] [place], [address], 03/21/2024 11:07:36 03/20/19 25 03/21/2024 CMP14 +EGFR alkaline phosphatase 72 IU/L 44-121 Not Available [facility] ([facility]) [address] [place], [address], 03/21/2024 11:07:36 03/20/19 25 03/21/2024 CMP14 +EGFR AST (SGOT) 35 IU/L 0-40 Not Available [facility] ([facility]) [address] [facility] [place], [address], 03/21/2024 11:07:36 03/20/19 25 03/21/2024 CMP14 +EGFR ALT (SGPT) 45 IU/L 0-32 above high normal Not Available [facility] ([facility]) [address] [facility] [place], [address], 03/21/2024 11:07:36 03/20/19 25 03/21/2024 VITAM IN B12 AND FOLAT E vitamin B12 1002 pg/mL 232-12 45 Not Available [facility] ([facility]) [address] [place], [address], 03/21/2024 11:07:37 03/20/19 25 03/21/2024 VITAM IN B12 AND FOLAT E folate (folic acid), serum >20.0 NG/mL >3.0 A serum folat e hayder ntrat ion of less than 3.1 ng/mL is consi dered to repre sent clini hans defic iency . Not Available [facility] ([facility]) [address] [place], [address], 03/21/2024 11:07:37 03/20/19 25 03/21/2024 IRON AND TIBC iron bind.cap.(TI BC) 307 ug/dL 250-45 0 Not Available [facility] ([facility]) [address] [place], [address], 03/21/2024 11:07:38 03/20/19 25 03/21/2024 IRON AND TIBC UIBC 168 ug/dL 131-42 5 Not Available [facility] ([facility]) [address] [place], [address], 03/21/2024 11:07:38 03/20/19 25 03/21/2024 IRON AND TIBC iron 139 ug/dL 27-159 Not Available [facility] ([facility]) [address] [place], [address], 03/21/2024 11:07:38 03/20/19 25 03/21/2024 IRON AND TIBC iron saturation 45 % 15-55 Not Available [facility] ([facility]) [address] [place], [address], 03/21/2024 11:07:38 03/20/19 25 03/21/2024 SHANNAN TIN ferritin 147 NG/mL 15-150 Not Available [facility] ([facility]) [address] [place], [address], 03/21/2024 11:07:40 03/20/19 25 03/20/2024 CBC WITH DIFFE RENTI AL/PL ATELE T WBC 4.4 x10e3 /uL 3.4-10 .8 Not Available [facility] ([facility]) [address] [place], [address], 03/21/2024 11:07:41 03/20/19 25 03/20/2024 CBC WITH DIFFE RENTI AL/PL ATELE T RBC 4.64 x10e6 /uL 3.77-5 .28 Not Available [facility] ([facility]) [address] [place], [address], 03/21/2024 11:07:41 03/20/19 25 03/20/2024 CBC WITH DIFFE RENTI AL/PL ATELE T hemoglobin 13.8 g/dL 11.1-1 5.9 Not Available [facility] ([facility]) [address] [place], [address], 03/21/2024 11:07:41 03/20/19 25 03/20/2024 CBC WITH DIFFE RENTI AL/PL ATELE T hematocrit 42.1 % 34.0-4 6.6 Not Available [facility] ([facility]) [address] [place], [address], 03/21/2024 11:07:41 03/20/19 25 03/20/2024 CBC WITH DIFFE RENTI AL/PL ATELE T MCV 91 fL 79-97 Not Available [facility] ([facility]) [address] [facility], [place], [address], 03/21/2024 11:07:41 03/20/19 25 03/20/2024 CBC WITH DIFFE RENTI AL/PL ATELE T MCH 29.7 pg 26.6-3 3.0 Not Available [facility] ([facility]) [address] [facility], [place], [address], 03/21/2024 11:07:41 03/20/19 25 03/20/2024 CBC WITH DIFFE RENTI AL/PL ATELE T MCHC 32.8 g/dL 31.5-3 5.7 Not Available [facility] ([facility]) [address] [facility], [place], [address], 03/21/2024 11:07:41 03/20/19 25 03/20/2024 CBC WITH DIFFE RENTI AL/PL ATELE T RDW 12.8 % 11.7-1 5.4 Not Available [facility] ([facility]) [address] [facility], [place], [address], 03/21/2024 11:07:41 03/20/19 25 03/20/2024 CBC WITH DIFFE RENTI AL/PL ATELE T platelets 260 x10e3 /uL 150-45 0 Not Available [facility] ([facility]) [address] [place], [address], 03/21/2024 11:07:41 03/20/19 25 03/20/2024 CBC WITH DIFFE RENTI AL/PL ATELE T neutrophils 46 % notest ab. Not Available [facility] ([facility]) [address] [facility], [place], [address], 03/21/2024 11:07:41 03/20/19 25 03/20/2024 CBC WITH DIFFE RENTI AL/PL ATELE T lymphs 43 % notest ab. Not Available [facility] ([facility]) [address] [facility], [place], [address], 03/21/2024 11:07:41 03/20/19 25 03/20/2024 CBC WITH DIFFE RENTI AL/PL ATELE T monocytes 8 % notest ab. Not Available [facility] ([facility]) [address] [facility], [place], [address], 03/21/2024 11:07:41 03/20/19 25 03/20/2024 CBC WITH DIFFE RENTI AL/PL ATELE T eos 2 % notest ab. Not Available [facility] ([facility]) [address] [place], [address], 03/21/2024 11:07:41 03/20/19 25 03/20/2024 CBC WITH DIFFE RENTI AL/PL ATELE T basos 1 % notest ab. Not Available [facility] ([facility]) [address] [facility], [place], [address], 03/21/2024 11:07:41 03/20/19 25 03/20/2024 CBC WITH DIFFE RENTI AL/PL ATELE T neutrophils (absolute) 2.0 x10e3 /uL 1.4-7. 0 Not Available [facility] ([facility]) [address] [facility], [place], [address], 03/21/2024 11:07:41 03/20/19 25 03/20/2024 CBC WITH DIFFE RENTI AL/PL ATELE T lymphs (absolute) 1.9 x10e3 /uL 0.7-3. 1 Not Available [facility] ([facility]) [address] [place], [address], 03/21/2024 11:07:41 03/20/19 25 03/20/2024 CBC WITH DIFFE RENTI AL/PL ATELE T monocytes(ab solute) 0.4 x10e3 /uL 0.1-0. 9 Not Available [facility] ([facility]) [address] [facility], [place], [address], 03/21/2024 11:07:41 03/20/19 25 03/20/2024 CBC WITH DIFFE RENTI AL/PL ATELE T eos (absolute) 0.1 x10e3 /uL 0.0-0. 4 Not Available [facility] ([facility]) [address] [place], [address], 03/21/2024 11:07:41 03/20/19 25 03/20/2024 CBC WITH DIFFE RENTI AL/PL ATELE T baso (absolute) 0.0 x10e3 /uL 0.0-0. 2 Not Available [facility] ([facility]) [address] [facility], [place], [address], 03/21/2024 11:07:41 03/20/19 25 03/20/2024 CBC WITH DIFFE RENTI AL/PL ATELE T immature granulocytes 0 % notest ab. Not Available [facility] ([facility]) [address] [place], [address], 03/21/2024 11:07:41 03/20/19 25 03/20/2024 CBC WITH DIFFE RENTI AL/PL ATELE T immature grans (abs) 0.0 x10e3 /uL 0.0-0. 1 Not Available [facility] ([facility]) [address] [place], [address], 03/21/2024 11:07:41 Result Notes None recorded. Problems Name Problem SNOMED Code Status Onset Date Resolution Date Notes Provider Name and Address Organization Details Recorded Time Body mass index 20-24 - normal 059816747 Active 025 Carolina Mckeon MA null, [place] - [facility] 03/11/2024 15:03:22 Loss of hair 606299693 Active 025 VANESSA Bustos Attn: Accounting ,[address] [facility], [place], [address] , [facility] 03/31/2024 10:43:49 Problem Notes None recorded. Procedures Surgical History Date Name Laterality Status Provider Name and Address Organization Details Recorded Time 04/06/18 84 Arthroscopic Surgery completed Carolina Mckeon MA [facility] 03/11/2024 16:04:24 02/17/18 83 Appendectomy completed Carolina Mckeon MA [facility] 03/11/2024 16:04:06 Back Surgery completed Carolina Mckeon MA [facility] 03/11/2024 16:04:32 Breast Surgery completed Carolina Mckeon MA [facility] 03/11/2024 16:04:40 Imaging Results None recorded. Procedure Notes None recorded. Medical Equipment None Reported. Allergies Allergen ID Allergen Name Allergen Category Reaction Reaction Severity Criticality Documentation Date Start Date Code Code System Note Provider Name and Address Organization Details Recorded Time 746065 cephalexi n medicatio n Not available Not available Not available 03/11/2024 2231 RxNorm Not Available Not Available Not Available 542879 Product containin g penicilli n (product) medicatio n Not available Not available Not available 03/11/2024 67259 8001 SNOMED Not Available Not Available Not Available Medications Name Sig Start Date Stop Date Status Note LastModified by Organization Details LastModified Time cephalexin 2024 completed Not Available Not Available Not Available Vitals Date Recorded Body weight Respiratory rate Body mass index (BMI) Body height Oxygen saturation Oxygen saturation in Arterial blood by Pulse oximetry Heart rate Systolic blood pressure Diastolic blood pressure Provider Name and Address Organization Details Last Updated DateTime 36513.5 6 g 18 /min 23.9 kg/m2 160.66 cm 97 % 97 % 65 /min 118 mm[Hg] 82 mm[Hg] Carolina Mckeon MA [facility] 15:07:13 Date Recorded Systolic blood pressure Diastolic blood pressure Provider Name and Address Organization Details Last Updated DateTime 03/11/2024 120 mm[Hg] 80 mm[Hg] VANESSA Bustos Attn: Accounting,[address] [facility], [place], [address], [facility] 03/11/2024 15:38:01 Social History Question Answer Notes LastModified by Organizat ion Details LastModified Time Tobacco Smoking Status Never Smoker Carolina Mckeon MA null, [facility] 03/11/2024 15:05:07 Do You Have An Advance Directive? Yes Information not available 03/11/2024 What Is Your Level Of Alcohol Consumption? Occasional Information not available 03/11/2024 Are You Blind Or Do You Have Difficulty Seeing? No Readers Information not available 03/11/2024 What Is Your Level Of Caffeine Consumption? Occasional Information not available 03/11/2024 In The 14 Days Before Symptom Onset, Have You Had Close Contact With A Laboratory-confi rmed COVID-19 While That Case Was Ill? No Information not available 03/11/2024 In The 14 Days Before Symptom Onset, Have You Had Close Contact With A Person Who Is Under Investigation For COVID-19 While That Person Was Ill? No Information not available 03/11/2024 Have You Been To An Area Known To Be High Risk For COVID-19? No Information not available 03/11/2024 Are You Deaf Or Do You Have Serious Difficulty Hearing? No Information not available 03/11/2024 What Type Of Diet Are You Following? REGULAR Less Gluten Foods/ She Does Follow An Informal Plan 3x A Day W Snacks Information not available 03/11/2024 Are There Any Guns Present In Your Home? No Information not available 03/11/2024 What Was The Date Of Your Most Recent Tobacco Screening? 03/11/2024 Information not available 03/11/2024 What Is Your Relationship Status? Information not available 03/11/2024 Do You Use Your Seat Belt Or Car Seat Routinely? Yes Information not available 03/11/2024 Do You Have Smoke And Carbon Monoxide Detectors In Your Home? Yes Information not available 03/11/2024 Do You Feel Stressed (tense, Restless, Nervous, Or Anxious, Or Unable To Sleep At Night)? BI2386-4 Information not available 03/11/2024 Do You Use Any Illicit Or Recreational Drugs? No Information not available 03/11/2024 Do You Use Sunscreen Routinely? No Information not available 03/11/2024 Has Tobacco Cessation Counseling Been Provided? No Information not available 03/11/2024 Do You Or Have You Ever Used Any Other Forms Of Tobacco Or Nicotine? No Information not available 03/11/2024 Sex: Female Functional Status Question Answer Note LastModified by Organization D etails LastModified Time Are you able to care for yourself? Yes Information not available 03/11/2024 What is your exercise level? Moderate Information not available 03/11/2024 Mental Status None recorded. Family History Relationship Description Onset Age of this Age Resolved Age Notes LastModified by Organization Details LastModified Time Mother Blood coagulation disorder [email or web address] Not available 2024 16:04:53 Mother Diabetes mellitus [email or web address] Not available 2024 16:04:59 Mother Hypertensive disorder [email or web address] Not available 2024 16:05:13 Mother Hypercholest erolemia [email or web address] Not available 2024 16:05:22 Father Diabetes mellitus [email or web address] Not available 2024 16:04:59 Father Disorder of thyroid gland [email or web address] Not available 2024 16:05:05 Father Hypertensive disorder [email or web address] Not available 2024 16:05:13 Father Hypercholest erolemia [email or web address] Not available 2024 16:05:22 Father Myocardial infarction [email or web address] Not available 03/11 16:05:27 Medical History Condition Response Coronary Artery Disease N Other N High Blood Pressure N Atrial Fibrillation N Kidney or Bladder Problems N Thyroid Problems N GI Problems N Depression N COPD N Blood Clots N Have you had a mammogram in the last yea r? N Skin Problems N Anemia N Heart Attack ([place]) N Anxiety Disorder N Diabetes N Muscle, Joint, or Bone Problems N Seizures/Epilepsy N Have you had a colonoscopy in the last 1 0 years? N Acid Reflux (GERD) N Cancer N Stroke N Asthma N Allergies N Have you had a PSA blood test in the las t year? N High Cholesterol N Hepatitis N Liver Disease N Headaches N Heart Failure N Osteoporosis N Gynecological History Statement/Question Response Menses Monthly N Current Control Method Menopause Obstetrics History GPAL:G 3 P 3 0 0 3 Type Value Multiple Births 0 Full Term 3 Induced 0 Spontaneous 0 Premature 0 Living 3 Total 3 Immunizations Vaccine Type Date Status Note Provider Nam e and Address Organization Details Recorded Time Influenza, MDCK, quadrivalent, PF 12/01/2021 completed Carolina Mckeon [place], [place] [facility] 03/11/2024 14:59:42 zoster recombinant 12/01/2021 completed Carolina Mcke[place] [facility] 03/11/2024 14:59:42 zoster recombinant 02/01/2022 completed Carolina Mcke[place] [facility] 03/11/2024 14:59:42 COVID-19, mRNA, LNP-S, PF, 30 mcg/0.3 mL dose 04/30/2020 completed Carolina Mcke[place] [facility] 03/11/2024 14:59:42 COVID-19, mRNA, LNP-S, PF, 30 mcg/0.3 mL dose 05/21/2020 completed Carolina Mcke[place] [facility] 03/11/2024 14:59:42 COVID-19, mRNA, LNP-S, PF, 30 mcg/0.3 mL dose 02/02/2021 completed Carolina Mcke[place] [facility] 03/11/2024 14:59:42 COVID-19, mRNA, LNP-S, PF, 30 mcg/0.3 mL dose, cj-sucrose 08/26/2021 completed Carolina Mcke[place] [facility] 03/11/2024 14:59:42 Tdap 03/09/2022 completed Carolina Mcke[place] [facility] 03/11/2024 14:59:42 Influenza, split virus, quadrivalent, PF 11/24/2020 completed Carolina Mckeon MA sandra, [place] - [facility] 03/11/2024 14:59:42 Influenza, MDCK, trivalent, PF 02/21/2024 completed Carolina Mckeon MA sandra, [place] [facility] 03/11/2024 14:59:42 Past Encounters Encounter ID Performer Location Encounter Start Date Encounter Closed Date Diagnosis/Indication Diagnosis SNOMED-CT Code Diagnosis ICD10 Code Diagnosis Note [id number] VANESSA Bustos [facility] [place] [address] [place] [address] 03/11/2024 14:47:11 03/11/2024 16:09:03 Body mass index 20-24 - normal 842047452 Z68.23 BMI is 23.9 Adult heal th examination 852653760 Z00.00 New patient annual wellness exam completed Loss of hair 116680592 L 65.9 Patient's focus on her review of systems is her hair loss that she has had. She is interested in more in-depth labs to evaluate. We will order vitamin B12 and folate as well as thyroid function testing iron studies CBC and CMP. Health Concerns Section Related Observation LastModified by Organization Detai ls LastModified Time None Recorded Concern Status LastModified by Organization Details LastModified Time None Recorded Advance Directives Directive Y: Payers Encounter Date Sequence Insurance Name Policy Number Policy Kim Covered Member ID Kim Member ID Guarantor Name 03/11/2024 1 [facility] [id number] Talat Uribe [id number] Humaira Uribe Notes Date Note Type Note Provider Name and Address Organization Details Recorded Time 03/11/2024 text/html Patient was on zepbound for about 12 weeks, lost around 35 pounds this past summer. Substantial hair loss she has noticed since losing weight and being on Zepbound. Major job stress where she is at and it's like this all the time for her. she does have recent January labs are on her portal and were normal range per her report. VANESSA Bustos Attn: Accounting,[address] [facility], [place], [address], [facility] 03/31/2024 10:44:17 OBGyn Episode No OBEpisode recorded.
--- OUTSIDE RECORDS SUMMARY | 2024-04-16 10:13 | XMS_ITS | Clinical Summary ---
Author Organization [facility] Address [address] [place] [id number] Care Team Providers Care Medical Sonographer Name Role Phone Сергей Cota MD Primary Care Provider Allergies Active Allergy Reactions Criticality Noted Date Comments Cefazolin Unknown 10/31/2017 Cephalexin Rash Medium 10/31/2017 Penicillins Rash Medium Medications ypmcnugr-izcg-c in-folic acid 18-0.4 mg tabletIndicatio ns:Mineral Deficiency [...] 03/09/2022 Assessment & Plan (03/09/2022 4:03 PM FENDER FINISHER): Recommend healthy diet and regular exercise. Discussed immunization against tetanus, influenza and COVID-19. Discussed screening for cervical cancer. She has been following up with OBGYN. Reviewed Pap smear from 04/2021. Discussed screening for colon cancer here discussed screening for breast cancer. Screening for diabetes mellitus 03/09/2022 Assessment & Plan (03/09/2022 4:03 PM FENDER FINISHER): Discussed screening for diabetes Screening for colon cancer 03/09/2022 Assessment & Plan (03/09/2022 4:04 PM FENDER FINISHER): Discussed screening for colon cancer. Ordering a colonoscopy. Factor V Leiden carrier 03/09/2022 Overweight 03/09/2022 Assessment & Plan (03/09/2022 4:04 PM FENDER FINISHER): Recommend weight loss through healthy diet and regular exercise. Recommended dietitian referral. We will follow-up with A1c. She is interested in medication for weight loss. Postoperative pain after spinal surgery 03/08/19 19 Abnormal mammogram 12/11/2017 Assessment & Plan (01/26/2024 3:49 PM FENDER FINISHER): Pt with history of abnormal MMGs and [...] (12/08/2017): Added automatically from request for surgery [id number] DDD (degenerative disc disease), lumbar 12/09/19 Overview (12/08/2017): Added automatically from request for surgery [id number] Spondylolisthesis of lumbosacral region 11/11/19 Overview (11/10/2017): Added automatically from request for surgery [id number] Annular tear of lumbar disc 10/31/2017 Chronic bilateral low back pain without sciatica 10/31/2017 Discogenic low back pain 10/31/2017 Other chronic pain 10/31/2017 Factor V Leiden 01/08/2013 Assessment & Plan (03/09/2022 4:03 PM FENDER FINISHER): She has a family history of factor 5 laden deficiency. 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 Encounters Date Type Department Care Team Description 03/12/2024 Telephone [facility] [address] [place] [address] Marielena Pereira Scheduling Appointments (/) 02/23/2024 Orders Only [facility] [address] [facility] 7th Floor [address] [place] [address] Rikki Alvarado RN Abnormal mammogram (Primary Dx) 01/26/2024 3:00 PM FENDER FINISHER Office Visit [facility] [address] [facility] 1st Floor [address] [place] [address] SonignacioXiao MD Saúl Abnormal mammogram (Primary Dx) 01/22/2024 [facility] [address] [place] [address] [address] [facility] [place] [address] Сергей Cota MD Lab Results from Last 3 Months Immunizations Immunization Administration Dates Next Due Influenza, Quadrivalent, Spl it, Preservative Free, Intramuscular 12/01/2021,11/24/2020 Influenza, Unspecified 01/08/2013 Tdap 03/09/2022 ZOSTER Recombinant 02/01/2022,12/01/2021 Surgical History Surgery Date Site/Laterality Comments KNEE ARTHROSCOPY 02/07/1984 - 02/05/1985 APPENDECTOMY 02/06/1983 - 02/06/1984 VAGINAL DELIVERY 2 of 3 w/ epidural BREAST CYST ASPIRATION BREAST BIOPSY 12/27/2017 Right DISCOGRAM 10/31/2017 SPINE SURGERY 02/06/2018 - 03/08/2018 SHOULDER ARTHROSCOPY W/ ROTATOR CUFF REPAIR 04/29/2022 COLONOSCOPY 11/06/2022 Medical History Medical History Date Comments Arthritis Factor 5 Leiden mutation, heterozygous No hx VTE Hypoglycemia clinical reactiv e hypoglycemia (dx'd 2005); controlled w/ protein & carbs; 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 at [facility] Hypoglycemia Hyperlipidemia 07/28/2022 Delayed emergence from gener al anesthesia Family History Medical History Relation Name Comments Atrial fibrillation Father Jose Martinez Coronary artery disease Father Jose Martinez Hypertension Father Jose Martinez Melanoma Father's Brother 1 Cancer Father's Brother 2 Lavell Martinez Atrial fibrillation Maternal Grandfather Rigo Viera Diabetes Maternal Grandfather Rigo Maximiliano Hypertension Maternal Grandfather Rigo Maximiliano Stroke Maternal Grandfather Rigo Maximiliano Clotting disorder Mother Toshia Rosenboom Deep vein thrombosis Mother Toshia Rosenboom Factor V Leiden Mother Toshia Rosenboom Hypertension Mother Toshia Rosenboom Coronary artery disease Paternal Grandfather Karlos Lukasz pinzon Hypertension Paternal Grandfather Karlos Martinez Cancer Paternal Grandmother Adela Martinez Colon cancer Paternal Grandmother Adela Martinez Hypertension Paternal Grandmother Adela Martinez Relation Name Status Comments Father Jose Martinez Alive Father's Brother 1 Father's Brother 2 Lavell Martinez Maternal Grandfather Rigo Maximiliano (Age 82) Maternal Grandmother Alive Mother Toshia Caal Alive Paternal Grandfather Karlos Martinez (Age 70) Paternal Grandmother Adela Martinez (Age 70) Social History Tobacco Use Types Packs/Day Years [...] on file Legal Sex Female 11:23 AM FENDER FINISHER Gender Identity Not on file Sexual Orientation Not on file Obstetrics History Para Term AB IAB SAB Ectopic Multiple Livin g Live Births 3 3 3 3 3 Date Outcome GA Total Labor Labor/2nd/3rd Weight Sex Type Anes PTL Bonny A1 A5 Name Clin 1988 Term M Vaginal Living Complications:None 2001 Term M Vaginal Living Complications:None 2003 Term M Vaginal Living Complications:None Last Filed Vital Signs Vital Sign Reading Time Taken Comments Blood Pressure 118/81 01/26/2024 2:51 PM FENDER FINISHER Pulse 64 01/26/2024 2:51 PM FENDER FINISHER Temperature 36.2 C (97.2 F) 11/30/2022 1:05 PM CDT Respiratory Rate 16 03/06/2018 8:45 AM FENDER FINISHER Oxygen Saturation 99% 11/17/2023 9:58 AM CDT Inhaled Oxygen Concentration - - Weight 59.7 kg (131 lb 9.6 oz) 01/26/2024 2:51 P M FENDER FINISHER Height 160 cm (5' 2.99 ) 01/26/2024 2:51 PM FENDER FINISHER Body Mass Index 23.32 01/26/2024 2:51 PM FENDER FINISHER Plan of Treatment Scheduled Procedures Name Priority Associated Diagnoses Date/Ti me COLONOSCOPY Colon cancer screening COLONOSCOPY Colon cancer screening Health Maintenance Due Date Last Done Comments Hepatitis C Screening 1970 Hepatitis B Screening 02/05/1988 Cervical Cancer Screening 04/29/2022 04/29/2021 Breast Cancer Screening-Mammogram 06/11/2022 06/11/2021 Depression Screening 03/09/2023 03/09/2022 Regular Well Visit/Exam 18-64 03/09/2023 03/09/2022, 04/29/2021 Covid-19 Vaccine ( season) 2023 02/02/2021, 05/21/2020, 04/30/2020 DTaP/Tdap/Td Vaccine (2 - Td or Tdap) 03/09/2032 03/09/2022 Colon Cancer Screening-Colonoscopy 11/30/2032 11/30/2022 Zoster Vaccine Completed 02/01/2022, 12/01/2021 Influenza Vaccine Completed 02/21/2024, , 11/24/2020, Additional history exists Pneumococcal vaccine <65 Aged Out No longer eligible based on patient's age to complete this topic Medical Devices Implanted Type Area Airport Operations Supervisor Device Identifier Shelf Expiration Date Model / Serial / Lot Medtronic Sofamor Danek [id number] Mastergraft Block Void Filler Substitute 20ml Bone Graft Matrix - [id number] Implanted:Qty: 1 on 03/01/2018 by Reji Marinelli MD at [facility] N/A: Spine Lumbar Medtronic Sofamor Danek [id number] 02/06/2020 [id number] / / [id number] Medtronic Inc [id number] 8.5mm 70mm Multiaxial Cannulated Thoracolumbar Screw Bone - [id number] Implanted:Qty: 1 on 03/01/2018 by Reji Marinelli MD at [facility] N/A: Spine Lumbar Medtronic Inc [id number] / / Medtronic Sofamor Danek [id number] Infuse 18mm 26mm Absorbable Sponge Sterile Water Syringe Needle - [id number] Implanted:Qty: 1 on 03/01/2018 by Reji Marinelli MD at [facility] N/A: Spine Lumbar Medtronic Sofamor Danek 07/07/2019 [id number] / / [id number] Medtronic Sofamor Danek [id number] Infuse 18mm 26mm Absorbable Sponge Sterile Water Syringe Needle - [id number] Implanted:Qty: 1 on 03/01/2018 by Reji Marinelli MD at [facility] N/A: Spine Lumbar Medtronic Sofamor Danek 07/07/2019 [id number] / / [id number] [employer] [id number] - [id number] - [id number] Implanted:Qty: 1 on 03/01/2018 by Reji Marinelli MD at [facility] N/A: Spine Lumbar [employer] 01/12/2023 [id number] / [id number] / Medtronic Sofamor Danek [id number] Solera Cd Horizon 6.5mm 50mm Multiaxial Spine Screw Bone Cocr - [id number] Implanted:Qty: 5 on 03/01/2018 by Reji Marinelli MD at [facility] N/A: Spine Lumbar Medtronic Sofamor Danek [id number] / / Medtronic Sofamor Danek [id number] 5.5mm 55mm Multiaxial Spine Screw Bone Cocr 5.5mm Demetrius - [id number] Implanted:Qty: 1 on 03/01/2018 by Reji Marinelli MD at [facility] N/A: Spine Lumbar Medtronic Sofamor Danek [id number] / / Medtronic Sofamor Danek [id number] Cd Horizon Break Off Spinal Screw Set Titanium Nonsterile 5.5 Mm - [id number] Implanted:Qty: 7 on 03/01/2018 by Reji Marinelli MD at [facility] N/A: Spine Lumbar Medtronic Sofamor Danek [id number] / / Medtronic Sofamor Danek [id number] Cd Horizon 5.5mm 500mm Line Straight Demetrius Spinal Titanium - [id number] Implanted:Qty: 1 on 03/01/2018 by Reji Marinelli MD at [facility] N/A: Spine Lumbar Medtronic Sofamor Danek [id number] / / Explanted Type Area Airport Operations Supervisor Device Identifier Shelf Expiration Date Model / Serial / Lot Medtronic Sofamor Danek [id number] Solera Cd Horizon 6.5mm 55mm Multiaxial Spine Screw Bone Cocr - [id number] Explanted:Qty: 1 on 03/01/2018 at [facility] N/A: Spine Lumbar Medtronic Sofamor Danek [id number] / / Procedures Procedure Name Priority Date/Time Associated Diagnosis Comments THYROID FUNCTION CASCADE Routine 01/19/2024 8:58 AM FENDER FINISHER Hyperlipidemia, unspecified hyperlipidemia type COMPREHENSIVE METABOLIC PANEL Routine 01/19/2024 8:58 AM FENDER FINISHER Hyperlipidemia, unspecified hyperlipidemia type COLONOSCOPY 11/30/2022 12:27 PM CDT DIAGNOSTIC MAMMOGRAM BILATERAL W L[place]SETTE Schedule Routine, Read Routine (OP Routine) 06/11/2021 11:07 AM CDT Dense breast tissue on mammogram PAP AND HIGH RISK HPV, REFLEX TO GENOTYPING Routine 04/29/2021 10:45 AM CDT Routine gynecological examination from Last 3 Months or Most Recently Relevant to Health Maintenance Results * Thyroid Function [place] (01/19/2024 8:58 AM FENDER FINISHER) TSH 1.850 0.450 - 4.500 uIU/mL [facility] - Comment: No apparent thyroid disorder. Additional testing not indicated. In rare instances, Secondary Hypothyroidism as well as Subclinical Hypothyroidism have been reported in some patients with normal TSH values. Blood 01/19/2024 8:58 AM FENDER FINISHER 01/19/2024 Narrative [facility] - 01/20/2024 8:12 AM FENDER FINISHER Performed at: - [facility] [id number] Advanced Manufacturing Engineer: Amor Case PhD, Phone: [phone] us Madeline Juarez GRADUATE FELLOW LAB BLOOD ORDERABLES Final Re sult [facility] - * Comprehensive metabolic panel (01/19/2024 8:58 AM FENDER FINISHER) Pathologist [facility] Glucose 96 70 [...] [facility] - 01 Blood 01/19/2024 8:58 AM FENDER FINISHER 01/19/2024 Narrative [facility] - 01/20/2024 8:12 AM FENDER FINISHER Performed at: 01 - [facility] [address] [id number] Advanced Manufacturing Engineer: Amor Case PhD, Phone: [phone] us Madeline Juarez GRADUATE FELLOW LAB BLOOD ORDERABLES Final Re sult [facility] - * COLONOSCOPY (11/30/2022 12:27 PM CDT) Anatomical Region Laterality Modality Other Narrative Procedure Note Miles Lopez MD - 11/30/2022 12:27 PM CDT ENDOSCOPY LAB Patient Name: Humaira English Procedure Date: 11/30/2022 12:27PM Date of : 1970 Admit Type: Outpatient Age: 52 Gender: Female Attending MD: Miles Lopez M.D. Room: [facility] ENDOSCOPY ROOM 03 Note Status: Finalized Procedure: [...] The scope was passed under direct vision.The [id number] was introduced through the anusand advanced to [...] During normal business hours - [facility]: [phone] After hours, evening, nights, weekends and holidays- Please call the hospital glycerine plant operator at and ask for the GI fellow television mechanic. Attending Participation: I personally performed the entire procedure. Electronically signed by Miles Lopez MD Miles Lopez M.D. 11/30/2022 1:11:08 PM Number of Addenda: 0 Note Initiated On: 11/30/2022 12:27 PM us Miles Lopez MD ENDOSCOPY PROCEDURES Final Result [...] months. Electronically signed by: Lyndon Moore MD Geraldine Mancini MD IM MAMMO PROCEDURES Evie l Result * Pap and High Risk HPV, reflex to Genotyping (04/29/2021 10:45 AM CDT) Thin prep (Pap test) 04/29/2021 10:45 AM CDT 05/01/2021 11:01 AM CDT Narrative PATHOLOGY [facility] - 05/04/2021 12:20 PM CDT EPIC results best viewed via link to PDF [address] [address] Tele: Estelita Jacobson MD - Property Adjuster CYTOLOGY REPORT Note to Patients: This report [...] and explain the details. Patient Name: HUMAIRA ENGLISH Address: [address] [place] [address] Gender: F : 1970 (Age: 51) Service: Location: N : [id number] [facility] #: [id number] Patient Type: [facility] [place] Taken: 04/29/2021 Reported: 05/04/2021 Physician(s): Geraldine [...] LAB CYTOLOGY ORDERABLES F inal Result PATHOLOGY [facility] Laboratory Receiving [address] [place] [address] from Last 3 Months or Most Recently Relevant to Health Maintenance Insurance [facility] CHOICE PLUS [facility] CHO[facility] PLUS [facility] CHO[facility] PLUS [facility] CHOICE PLUS Advance Directives For more information, please contact: [phone] * Full Code (Latest Code Status on File) Date Activated Date Inactivated Comments 11/30/2022 11:16 AM 11/30/2022 5:57 PM * Full Code Date Activated Date Inactivated Comments 03/01/2018 11:28 AM 03/06/2018 7:48 PM Care Teams Medical Sonographer Relationship Specialty Start Date End Date Сергей Cota MD [address] [address] PCP - General Endocrinology Diabetes & Metabolism 07/28/22
--- OUTSIDE RECORDS SUMMARY | 2024-04-16 10:13 | XMS_ITS | Encounter Summary ---
Author Organization [facility] Address [address] [place] [address] Care Team Providers Care Card Feeder Name Role Phone Сергей Cota MD Primary Care Provider Reason for Visit * Reason Onset Date Comments ready to schedule 09/19/2022 Encounter Details Date Type Department Care Team (Late st Contact Info) Description 09/19/2022 Telephone [facility] Specialty Services [address] [place] [address] Miscellaneous, Not In File ready to schedule Social History Tobacco Use Types Packs/Day Years Used Date Smoking Tobacco: Never Smokeless Tobacco: Never Alcohol Use Standard Drinks/Week Comments Yes 0 (1 standard drink = 0.6 oz pur e alcohol) twice a month PHQ-2 Answer Date Recorded PHQ-2 Total Score (If total score is 3 or more points, staff should administer the PHQ-9) 0 03/09/2022 Comments No Sex and Gender Information Value Date Recorded Sex Assigned at Not on file Legal Sex Female 11:23 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 [address] [place] [address] PCP - General Endocrinology Diabetes & Metabolism 07/28/22 documented as of this encounter
[2024-04-16 10:17] LABS: Partial Thromboplastin Time 25.7 Seconds (22.3-36.8)
[2024-04-16 10:23] LABS: Troponin I < 0.012 ng/mL (0.000-0.034)
--- NOTE | 2024-04-16 10:35 | ED_ITS ---
HPI - Chest Pain General Chief Complaint: Chest Pain Stated Complaint: chest pain Time Seen by Provider: 04/16/24 09:32 Source: patient Mode of arrival: ambulatory Limitations: no limitations History of Present Illness HPI narrative: This is a 54 year old female that presents to the ER for chest pain. Reports she woke up this morning and felt like she was maybe getting a cold. Reports chills, congestion, loose stools. Reports after her work out today she started to develop some left shoulder pain. Reports she then developed left sided chest pain. The pain is very mild. She has had previous surgery on this shoulder, but reports she has not had trouble with it since. Denies cough, shortness of breath. Related Data Home Medications ?Medication ?Instructions ?Recorded ?Confirmed ?Last Taken ?Type calcium citrate 250 mg PO DAILY 03/24/22 03/24/22 Unknown History lysine 500 mg tablet 500 mg PO DAILY 03/24/22 03/24/22 Unknown History vitamin B complex (B 1 tablet PO DAILY 03/24/22 03/24/22 Unknown History Complex-Vitamin B12 tablet) vitamin E mixed 400 unit capsule unit PO 03/24/22 03/24/22 Unknown History Allergies Allergy/AdvReac Type Severity Reaction Status Date / Time cefazolin (From Ancef) Allergy Intermediate Rash Verified 04/16/24 09:35 cephalexin (From Keflex) Allergy Intermediate Rash Verified 04/16/24 09:35 cefuroxime Allergy Unknown Hives Verified 04/16/24 09:35 Penicillins Allergy Unknown Hives Verified 04/16/24 09:35 Review of Systems 2 Review of Systems: CONSTITUTIONAL: Reports chills ENT: Reports congestion, otalgia. CARDIOVASCULAR: Reports chest pain RESPIRATORY: Denies cough or dyspnea. GASTROINTESTINAL: Reports diarrhea. Denies abdominal pain, nausea, vomiting All systems reviewed & are unremarkable except as noted in HPI and below PMFSH Past Medical History Medical History Factor V Leiden Hypoglycemia Rotator cuff injury Surgical History Surgical History History of appendectomy 1982 History of knee surgery 1985 History of repair of rotator cuff History of spinal fusion 2018 Family History Family History Grandparent Diabetes mellitus Acute myocardial infarction Carcinoma of colon Family history of coronary artery disease Cancer Hypertension Heart disease Cerebrovascular accident Other Cancer Mother Hypertension Father Hypertension Heart disease Thyroid disorder Social History Social History Smoking status: Never smoker Alcohol intake: current Substance use type: does not use Living arrangements: with family Occupation/Education: occupation Additional occupation/education comments: [email or web address]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 HEAD: Normocephalic, atraumatic. EYES: PERRLA and EOMI. ENT: Nares clear, no rhinorrhea or epistaxis. Mucous membranes moist. Oropharynx without tonsillar hypertrophy exudate or other lesions. Bilateral TMs pearly mason non-bulging NECK: Supple. No adenopathy or masses. CHEST: Clear to auscultation. No respiratory distress. No wheezes rales or rhonchi HEART: Regular rate and rhythm. No murmur heard. Normal peripheral pulses. ABDOMEN: Soft, nontender, nondistended, normal active bowel sounds. EXTREMITIES: Normal range of motion. No edema. SKIN: Warm, dry, no rash. NEURO: No focal deficits. Alert and oriented x3. CN II-XII grossly intact PSYCH: Normal mood and affect Course Course Emergency Course: Patient updated on her workup and agrees with plan of care Vital Signs Vital signs: Vital Signs Temperature 97.7 F 04/16/24 09:32 Pulse Rate 68 04/16/24 09:32 Respiratory Rate 20 04/16/24 09:32 Blood Pressure 142/87 H 04/16/24 09:32 Pulse Oximetry 100 04/16/24 09:32 Oxygen Delivery Room Air 04/16/24 09:32 Temperature 97.7 F 04/16/24 09:32 Pulse Rate 70 04/16/24 15:59 Respiratory Rate 16 04/16/24 15:59 Blood Pressure 120/78 04/16/24 15:59 Pulse Oximetry 97 04/16/24 15:59 Oxygen Delivery Room Air 04/16/24 09:40 MDM - Chest Pain MDM Narrative Medical decision making narrative: Patient presents to the emergency department for chest pain, shoulder pain, chills, loose stools. She is afebrile and nontoxic appearing. Her vitals are stable. CBC with white blood cell count of 3.9. Metabolic panel with mild transaminitis. EKG without acute ST changes in baseline and 3 hour troponin are negative. Chest x-ray without acute cardiopulmonary abnormality. Influenza, RSV and COVID screens are negative. Her heart score is 2. Patient updated on her workup and agrees with plan of care. She is to have close follow-up with primary provider. She was given warnings to return to the ER Differential Diagnosis Differential diagnosis: Likely stable angina, atypical chest pain, costochondritis and other (muscle strain, chest wall pain) Lab Data Attestation: I reviewed the patient's lab results. 04/16/24 09:44 04/16/24 09:44 Labs: Lab Results 04/16/24 04/16/24 04/16/24 Range/Units 09:44 11:13 14:06 WBC 3.9 L (4.5-10.0) K/mm3 RBC 4.98 (4.2-5.4) M/mm3 Hgb 15.0 (12.0-15.0) g/dL Hct 44.7 (37.0-47.0) % MCV 89.8 (80-100) fl MCH 30.1 (26-34) pg MCHC 33.6 (32-36) g/dl RDW 13.3 (11.5-14.5) % Plt Count 255 (150-375) k/mm3 MPV 9.8 (7.4-10.4) fl Immature Gran % (Auto) 0.3 (0-0.5) % Neut % (Auto) 56.4 (45.5-73.1) % Lymph % (Auto) 31.2 (18.3-44.2) % [place] % (Auto) 10.1 H (2.6-8.5) % Eos % (Auto) 1.0 (0-4.4) % Baso % (Auto) 1.0 (0.2-1.2) % Lymph # (Auto) 1.21 (0.9-3.2) K/mm3 [place] # (Auto) 0.4 (0.1-0.6) K/mm3 Eos # (Auto) 0.0 (0-0.3) K/mm3 Baso # (Auto) 0.0 (0.0-0.1) K/mm3 Abs Immat Gran (auto) 0.01 (0.00-0.031) K/mm3 Absolute Neuts (auto) 2.2 (1.3-6.7) K/mm3 Absolute Nucleated RBC 0.000 (0.0-0.012) K/mm3 Nucleated RBC % 0.0 (0.0-0.2) % PT 14.0 (11.1-14.7) Seconds INR 1.0 APTT 25.7 (22.3-36.8) Seconds Sodium 140 (137-145) mmol/L Potassium 3.9 (3.4-5.0) mmol/L Chloride 99 (98-107) mmol/L Carbon Dioxide 28 (22-30) mmol/L Anion Gap 13 H (4-12) mmol/L BUN 17 (7-17) mg/dL Creatinine 0.80 (0.7-1.0) mg/dL Estim Creat Clear Calc 58 ml/min Estimated GFR > 60 (59 - ) Glucose 107 (65-110) mg/dL Calcium 9.7 (8.4-10.2) mg/dL Total Bilirubin 0.8 (0.2-1.3) mg/dL AST 37 H (14-36) U/L ALT 37 H (6-35) U/L Alkaline Phosphatase 76 (38-126) U/L Troponin I < 0.012 < 0.012 (0.000-0.034) ng/mL Total Protein 8.0 (6.3-8.2) g/dL Albumin 5.0 (3.5-5.1) g/dL Influenza A (RT-PCR) Negative (Negative) Influenza B (RT-PCR) Negative (Negative) RSV (RT-PCR) Negative (Negative) SARS-CoV-2 RNA (RT-PCR) Negative (Negative) Imaging Data Radiologist's impression: ITS Impressions Chest X-Ray 04/16/24 10:21 IMPRESSION: No acute cardiopulmonary pathology. ECG Data EKG #1: ECG completion date: 04/16/24 EKG Interpretation: normal rate, sinus rhythm, no ST changes and normal QT Critical Care Time Critical Care Time Critical Care Time: No Discharge Plan Discharge Clinical Impression: Chest pain Qualifiers: Chest pain type: unspecified Qualified Code(s): R07.9 - Chest pain, unspecified Patient Disposition: Home, Self-Care Condition: Stable Instructions: Chest Pain (ED) Additional Instructions: Return to the Emergency Department if you experience fever, worsening chest pain, shortness of breath, or any other symptoms that are concerning to you Take your home medications as prescribed Follow up with your primary care doctor Patient Language: Macedonian Prescriptions: No Action calcium citrate 250 mg calcium tablet 250 mg PO DAILY lysine 500 mg tablet 500 mg PO DAILY vitamin B complex [B Complex-Vitamin B12] Tablet 1 tablet PO DAILY vitamin E mixed 400 unit capsule PO cyclobenzaprine 10 mg tablet 10 mg PO BID PRN (Reason: muscle spasm) Qty: 14 0RF Follow-up/Referrals: UNKNOWN,DOCTOR [Primary Care Provider] - Quality HEART score for chest pain patients History: slightly suspicious ECG: normal Age: > 45 and < 65 years Risk factors: 1 or 2 risk factors Troponin: < or = to 1x normal limit Heart score: 2
--- OUTSIDE RECORDS SUMMARY | 2024-04-16 10:47 | XMS_ITS | Referral Summary ---
Author Organization [facility] Address [address] [place] [address] Care Team Providers Care High School Sports Coach Name Role Phone Сергей Cota MD Primary Care Provider Encounters Date Type Department Care Team Description 03/12/2024 Telephone [facility] [address] [place] [address] Marielena Pereira Scheduling Appointments (/) 02/23/2024 Orders Only [facility] [address] [facility] 7th Floor [address] [place] [address] Rikki Alvarado RN Abnormal mammogram (Primary Dx) 01/26/2024 3:00 PM TAX ANALYST Office Visit [facility] [address] [facility] 1st Floor [address] [place] [address] Xiao Gaxiola MD Abnormal mammogram (Primary Dx) 01/22/2024 [facility] [address] [facility] [address] [facility] [place] [address] Сергей Cota MD Lab Results from Last 3 Months Allergies Active Allergy Reactions Criticality Noted Date Comments Cefazolin Unknown 10/31/2017 Cephalexin Rash Medium 10/31/2017 Penicillins Rash Medium Medications [id number]-[id number] in-folic acid 18-0.4 mg tabletIndicatio ns:Mineral Deficiency [...] 03/09/2022 Assessment & Plan (03/09/2022 4:03 PM TAX ANALYST): Recommend healthy diet and regular exercise. Discussed immunization against tetanus, influenza and COVID-19. Discussed screening for cervical cancer. She has been following up with OBGYN. Reviewed Pap smear from 04/2021. Discussed screening for colon cancer here discussed screening for breast cancer. Screening for diabetes mellitus 03/09/2022 Assessment & Plan (03/09/2022 4:03 PM TAX ANALYST): Discussed screening for diabetes Screening for colon cancer 03/09/2022 Assessment & Plan (03/09/2022 4:04 PM TAX ANALYST): Discussed screening for colon cancer. Ordering a colonoscopy. Factor V Leiden carrier 03/09/2022 Overweight 03/09/2022 Assessment & Plan (03/09/2022 4:04 PM TAX ANALYST): Recommend weight loss through healthy diet and regular exercise. Recommended dietitian referral. We will follow-up with A1c. She is interested in medication for weight loss. Postoperative pain after spinal surgery 03/08/19 19 Abnormal mammogram 12/11/2017 Assessment & Plan (01/26/2024 3:49 PM TAX ANALYST): Pt with history of abnormal MMGs and [...] (12/08/2017): Added automatically from request for surgery [id number] DDD (degenerative disc disease), lumbar 12/09/19 18 Overview (12/08/2017): Added automatically from request for surgery [id number] Spondylolisthesis of lumbosacral region 11/11/19 18 Overview (11/10/2017): Added automatically from request for surgery [id number] Annular tear of lumbar disc 10/31/2017 Chronic bilateral low back pain without sciatica 10/31/2017 Discogenic low back pain 10/31/2017 Other chronic pain 10/31/2017 Factor V Leiden 01/08/2013 Assessment & Plan (03/09/2022 4:03 PM TAX ANALYST): She has a family history of factor [...] on file Legal Sex Female 11:23 AM TAX ANALYST Gender Identity Not on file Sexual Orientation Not on file Last Filed Vital Signs Vital Sign Reading Time Taken Comments Blood Pressure 118/81 01/26/2024 2:51 PM TAX ANALYST Pulse 64 01/26/2024 2:51 PM TAX ANALYST Temperature 36.2 C (97.2 F) 11/30/2022 1:05 PM CDT Respiratory Rate 16 03/06/2018 8:45 AM TAX ANALYST Oxygen Saturation 99% 11/17/2023 9:58 AM CDT Inhaled Oxygen Concentration - - Weight 59.7 kg (131 lb 9.6 oz) 01/26/2024 2:51 P M TAX ANALYST Height 160 cm (5' 2.99 ) 01/26/2024 2:51 PM TAX ANALYST Body Mass Index 23.32 01/26/2024 2:51 PM TAX ANALYST Plan of Treatment Scheduled Procedures Name Priority Associated Diagnoses Date/Ti pr COLONOSCOPY Colon cancer screening COLONOSCOPY Colon cancer screening Medical Devices Implanted Type Area Store Promoter Device Identifier Shelf Expiration Date Model / Serial / Lot Medtronic Sofamor Danek [id number] Mastergraft Block Void Filler Substitute 20ml Bone Graft Matrix - [id number] Implanted:Qty: 1 on 03/01/2018 by Reji Marinelli MD at [facility] N/A: Spine Lumbar Medtronic Sofamor Danek [id number] 02/06/2020 [id number] / / [id number] Medtronic Inc [id number] 8.5mm 70mm Multiaxial Cannulated Thoracolumbar Screw Bone - [id number] Implanted:Qty: 1 on 03/01/2018 by Reji Marinelli MD at [facility] N/A: Spine Lumbar Medtronic Inc [id number] / / Medtronic Sofamor Danek [id number] Infuse 18mm 26mm Absorbable Sponge Sterile Water Syringe Needle - [id number] Implanted:Qty: 1 on 03/01/2018 by Reji Marinelli MD at [facility] N/A: Spine Lumbar Medtronic Sofamor Danek 07/07/2019 [id number] / / [id number] Medtronic Sofamor Danek [id number] Infuse 18mm 26mm Absorbable Sponge Sterile Water Syringe Needle - [id number] Implanted:Qty: 1 on 03/01/2018 by Reji Marinelli MD at [facility] N/A: Spine Lumbar Medtronic Sofamor Danek 07/07/2019 [id number] / / [id number] [employer] [id number] - [id number] - [id number] Implanted:Qty: 1 on 03/01/2018 by Reji Marinelli MD at [facility] N/A: Spine Lumbar [employer] 01/12/2023 [id number] / [id number] / Medtronic Sofamor Danek [id number] Solera Cd Horizon 6.5mm 50mm Multiaxial Spine Screw Bone Cocr - [id number] Implanted:Qty: 5 on 03/01/2018 by Reji Marinelli MD at [facility] N/A: Spine Lumbar Medtronic Sofamor Danek [id number] / / Medtronic Sofamor Danek [id number] 5.5mm 55mm Multiaxial Spine Screw Bone Cocr 5.5mm Demetrius - [id number] Implanted:Qty: 1 on 03/01/2018 by Reji Marinelli MD at [facility] N/A: Spine Lumbar Medtronic Sofamor Danek [id number] / / Medtronic Sofamor Danek [id number] Cd Horizon Break Off Spinal Screw Set Titanium Nonsterile 5.5 Mm - [id number] Implanted:Qty: 7 on 03/01/2018 by Reji Marinelli MD at [facility] N/A: Spine Lumbar Medtronic Sofamor Danek [id number] / / Medtronic Sofamor Danek [id number] Cd Horizon 5.5mm 500mm Line Straight Demetrius Spinal Titanium - [id number] Implanted:Qty: 1 on 03/01/2018 by Reji Marinelli MD at [facility] N/A: Spine Lumbar Medtronic Sofamor Danek [id number] / / Explanted Type Area Store Promoter Device Identifier Shelf Expiration Date Model / Serial / Lot Medtronic Sofamor Danek [id number] Solera Cd Horizon 6.5mm 55mm Multiaxial Spine Screw Bone Cocr - [id number] Explanted:Qty: 1 on 03/01/2018 at [facility] N/A: Spine Lumbar Medtronic Sofamor Danek [id number] / / Procedures Procedure Name Priority Date/Time Associated Diagnosis Comments THYROID FUNCTION CASCADE Routine 01/19/2024 8:58 AM TAX ANALYST Hyperlipidemia, unspecified hyperlipidemia type COMPREHENSIVE METABOLIC PANEL Routine 01/19/2024 8:58 AM TAX ANALYST Hyperlipidemia, unspecified hyperlipidemia type COLONOSCOPY 11/30/2022 12:27 PM CDT DIAGNOSTIC MAMMOGRAM BILATERAL W LISSETTE Schedule Routine, Read Routine (OP Routine) 06/11/2021 11:07 AM CDT Dense breast tissue on mammogram PAP AND HIGH RISK HPV, REFLEX TO GENOTYPING Routine 04/29/2021 10:45 AM CDT Routine gynecological examination from Last 3 Months or Most Recently Relevant to Health Maintenance Results * Thyroid Function Bell (01/19/2024 8:58 AM TAX ANALYST) Pathologist [facility] TSH 1.850 0.450 - 4.500 uIU/mL [facility] - 01 Comment: No apparent thyroid disorder. Additional testing not indicated. In rare instances, Secondary Hypothyroidism as well as Subclinical Hypothyroidism have been reported in some patients with normal TSH values. Blood 01/19/2024 8:58 AM TAX ANALYST 01/19/2024 Narrative [facility] - 01/20/2024 8:12 AM TAX ANALYST Performed at: [address] [place], [place] [id number] [place] Farmer: Amor Case PhD, Phone: [phone] us Madeline Juarez MOTOR MECHANIC LAB BLOOD ORDERABLES Final Re sult [facility] - 01 * Comprehensive metabolic panel (01/19/2024 8:58 AM TAX ANALYST) Pathologist [facility] Glucose 96 70 - 99 [...] [facility] - 01 Blood 01/19/2024 8:58 AM TAX ANALYST 01/19/2024 Narrative [facility] - 01/20/2024 8:12 AM TAX ANALYST Performed at: 01 - [facility] [id number] [place] Farmer: Amor Case PhD, Phone: [phone] us Madeline Juarez MOTOR MECHANIC LAB BLOOD ORDERABLES Final Re sult [facility] - 01 * COLONOSCOPY (11/30/2022 12:27 PM CDT) Anatomical Region Laterality Modality Other Narrative Procedure Note Miles Lopez MD - 11/30/2022 12:27 PM CDT ENDOSCOPY LAB Patient Name: Humaira English Procedure Date: 11/30/2022 12:27PM Date of : 1970 Admit Type: Outpatient Age: 52 Gender: Female Attending MD: Miles Lopez M.D. Room: [facility] ENDOSCOPY ROOM 03 Note Status: Finalized [...] The scope was passed under direct vision.The [id number] was introduced through the anusand advanced to [...] During normal business hours - Please call theNmuscogee Coordinator: [phone] After hours, evening, nights, weekends and holidays- Please call the hospital pocket and pulley machine operator at and ask for the GI fellow ad operations specialist. Attending Participation: I personally performed the entire [...] CDT 05/01/2021 11:01 AM CDT Narrative PATHOLOGY [facility] - 05/04/2021 12:20 PM CDT [facility] results best viewed via link to PDF [address] [address] Tele: Estelita Jacobson MD - Printed Products Assembler CYTOLOGY REPORT Note to Patients: This report [...] the details. Patient Name: HUMAIRA ENGLISH. Address: [address] [place] [address] , [place] [address] Gender: F : 1970 (Age: 51) Service: Location: Hospital #: [id number] Patient Type: [facility] SPECIMEN Taken: 04/29/2021 Reported: 05/04/2021 Physician(s): Geraldine [...] LAB CYTOLOGY ORDERABLES F inal Result PATHOLOGY [facility] Laboratory Receiving [address] [place] [address] from Last 3 Months or Most Recently Relevant to Health Maintenance Insurance [facility] CHO[facility] PL[facility] HMO/PPO Address[address] [place] [address] [facility] CHOICE PL[facility] HMO/PPO Address: [address] [place], [place] [id number] [facility] CHOICE PLUS [facility] HMO/PPO Address: [address] [place] [address] [facility] CHOICE PLUS [facility] HMO/PPO Address: [address] [place] [address] Advance Directives For more information, please contact: [phone] * Full Code (Latest Code Status on File) Date Activated Date Inactivated Comments 11/30/2022 11:16 AM 11/30/2022 5:57 PM * Full Code Date Activated Date Inactivated Comments 03/01/2018 11:28 AM 03/06/2018 7:48 PM Care Teams High School Sports Coach Relationship Specialty Start Date End Date Сергей Cota MD [address] [address] PCP - General Endocrinology Diabetes & Metabolism 07/28/22
--- OUTSIDE RECORDS SUMMARY | 2024-04-16 10:47 | XMS_ITS | Encounter Summary ---
Author Organization [facility] Healthcare Address [address] [place] [address] Care Team Providers Care Can Maker Name Role Phone Сергей Cota MD Primary Care Provider Reason for Visit * Reason Onset Date Comments ready to schedule 09/19/2022 Encounter Details Date Type Department Care Team (Late st Contact Info) Description 09/19/2022 Telephone [facility] Specialty Services [address] [place] [address] Miscellaneous, Not In File ready to schedule [...] on file Legal Sex Female 11:23 AM HEALTH SOCIAL WORK PROFESSOR Gender Identity Not on file Sexual Orientation Not on file documented as of this encounter Plan of Treatment Scheduled Procedures Name Priority Associated Diagnoses Date/Ti me COLONOSCOPY Colon cancer screening COLONOSCOPY Colon cancer screening documented as of this encounter Visit Diagnoses Not on filedocumented in this encounter Care Teams Can Maker Relationship Specialty Start Date End Date Сергей Cota MD [address] [facility] [address] [place] [address] PCP - General Endocrinology Diabetes & Metabolism 07/28/22 documented as of this encounter
--- OUTSIDE RECORDS SUMMARY | 2024-04-16 10:47 | XMS_ITS | CONTINUITY OF CARE DOCUMENT ---
Author Name vidal drake Address Unknown Organization [facility] Address [address] [place] [address] [address] [place] [address] Phone [phone] Care Team Providers Care Mold Shop Supervisor Name Role Phone Tena Andrews MD Unavailable Tena Andrews MD Unavailable [phone] PROBLEMS Condition Status Date Provider Notes Cardiovascular screening active Humaira Kamara INSURANCE PROVIDERS Payer name Policy type / Coverage type [place] red democrat ID SELF PAY TREATMENT PLAN Date Name CT, Coronary Calcium Score HISTORY OF PROCEDURES Procedure Date Procedure Name Provider Procedure Notes S tatus CT- Coronary CA score Tena Andrews MD completed
--- OUTSIDE RECORDS SUMMARY | 2024-04-16 10:47 | XMS_ITS | Clinical Summary ---
Author Organization [facility] Address [address] [place] [id number] Care Team Providers Care Play Leader Name Role Phone Сергей Cota MD Primary Care Provider Allergies Active Allergy Reactions Criticality Noted Date Comments Cefazolin Unknown 10/31/2017 Cephalexin Rash Medium 10/31/2017 Penicillins Rash Medium Medications ncbmpdbn-tjus-v in-folic acid 18-0.4 mg tabletIndicatio ns:Mineral Deficiency [...] 03/09/2022 Assessment & Plan (03/09/2022 4:03 PM [facility]ERRICK[employer] RIGGER): Recommend healthy diet and regular exercise. Discussed immunization against tetanus, influenza and COVID-19. Discussed screening for cervical cancer. She has been following up with OBGYN. Reviewed Pap smear from 04/2021. Discussed screening for colon cancer here discussed screening for breast cancer. Screening for diabetes mellitus 03/09/2022 Assessment & Plan (03/09/2022 4:03 PM STONE DERRICKMAN [employer] RIGGER): Discussed screening for diabetes Screening for colon cancer 03/09/2022 Assessment & Plan (03/09/2022 4:04 PM STONE DERRICKMAN [employer] RIGGER): Discussed screening for colon cancer. Ordering a colonoscopy. Factor V Leiden carrier 03/09/2022 Overweight 03/09/2022 Assessment & Plan (03/09/2022 4:04 PM [employer]ONE [employer]ERRICK[employer] RIGGER): Recommend weight loss through healthy diet and regular exercise. Recommended dietitian referral. We will follow-up with A1c. She is interested in medication for weight loss. Postoperative pain after spinal surgery 03/08/19 19 Abnormal mammogram 12/11/2017 Assessment & Plan (01/26/2024 3:49 PM STONE DERRICKMAN [employer] RIGGER): Pt with history of abnormal MMGs and [...] (12/08/2017): Added automatically from request for surgery [id number] DDD (degenerative disc disease), lumbar 12/09/19 Overview (12/08/2017): Added automatically from request for surgery [id number] Spondylolisthesis of lumbosacral region 11/11/19 Overview (11/10/2017): Added automatically from request for surgery [id number] Annular tear of lumbar disc 10/31/2017 Chronic bilateral low back pain without sciatica 10/31/2017 Discogenic low back pain 10/31/2017 Other chronic pain 10/31/2017 Factor V Leiden 01/08/2013 Assessment & Plan (03/09/2022 4:03 PM [employer]ONE [employer]ERRICKMAN [employer] RIGGER): She has a family history of factor 5 laden deficiency. 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 Encounters Date Type Department Care Team Description 03/12/2024 Telephone [facility] [address] [place] [address] Marielena Pereira Scheduling Appointments (/) 02/23/2024 Orders Only [facility] [address] [facility] 7th Floor [address] [place] [address] Rikki Alvarado RN Abnormal mammogram (Primary Dx) 01/26/2024 3:00 PM [employer] Office Visit [facility] [address] [facility] 1st Floor [address] [place] [address] SonignacioXiao MD Saúl Abnormal mammogram (Primary Dx) 01/22/2024 [facility] [address] [place] [address] [address] [facility] [place] [address] Сергей Cota MD Lab Results from Last [...] controlled w/ protein & carbs; follows w/ diet technician registered at [facility] Hypoglycemia [...] on file Legal Sex Female 11:23 AM ST[employer]IGGER Gender Identity Not on file Sexual Orientation [...] Comments Blood Pressure 118/81 01/26/2024 2:51 PM [employer] Pulse 64 01/26/2024 2:51 PM [employer] Temperature 36.2 C (97.2 F) 11/30/2022 1:05 PM CDT Respiratory Rate 16 03/06/2018 8:45 AM [employer] Oxygen Saturation 99% 11/17/2023 9:58 AM CDT Inhaled Oxygen Concentration - - Weight 59.7 kg (131 lb 9.6 oz) 01/26/2024 2:51 P M [employer] Height 160 cm (5' 2.99 ) 01/26/2024 2:51 PM [employer]GER Body Mass Index 23.32 01/26/2024 2:51 PM [employer] RIGGER Plan of Treatment Scheduled Procedures Name Priority [...] this topic Medical Devices Implanted Type Area Swedger Device Identifier Shelf Expiration Date Model / Serial / Lot Medtronic Sofamor Danek [id number] Mastergraft Block Void Filler Substitute 20ml Bone Graft Matrix - [id number] Implanted:Qty: 1 on 03/01/2018 by Reji Marinelli MD at [facility] N/A: Spine Lumbar Medtronic Sofamor Danek [id number] 02/06/2020 [id number] / / [id number] Medtronic Inc [id number] 8.5mm 70mm Multiaxial Cannulated Thoracolumbar Screw Bone - [id number] Implanted:Qty: 1 on 03/01/2018 by Reji Marinelli MD at [facility] N/A: Spine Lumbar Medtronic Inc [id number] / / Medtronic Sofamor Danek [id number] Infuse 18mm 26mm Absorbable Sponge Sterile Water Syringe Needle - [id number] Implanted:Qty: 1 on 03/01/2018 by Reji Marinelli MD at [facility] N/A: Spine Lumbar Medtronic Sofamor Danek 07/07/2019 [id number] / / [id number] Medtronic Sofamor Danek [id number] Infuse 18mm 26mm Absorbable Sponge Sterile Water Syringe Needle - [id number] Implanted:Qty: 1 on 03/01/2018 by Reji Marinelli MD at [facility] N/A: Spine Lumbar Medtronic Sofamor Danek 07/07/2019 [id number] / / [id number] [employer] [id number] - [id number] - [id number] Implanted:Qty: 1 on 03/01/2018 by Reji Marinelli MD at [facility] N/A: Spine Lumbar [employer] 01/12/2023 [id number] / [id number] / Medtronic Sofamor Danek [id number] Solera Cd Horizon 6.5mm 50mm Multiaxial Spine Screw Bone Cocr - [id number] Implanted:Qty: 5 on 03/01/2018 by Reji Marinelli MD at [facility] N/A: Spine Lumbar Medtronic Sofamor Danek [id number] / / Medtronic Sofamor Danek [id number] 5.5mm 55mm Multiaxial Spine Screw Bone Cocr 5.5mm Demetrius - [id number] Implanted:Qty: 1 on 03/01/2018 by Reji Marinelli MD at [facility] N/A: Spine Lumbar Medtronic Sofamor Danek [id number] / / Medtronic Sofamor Danek [id number] Cd Horizon Break Off Spinal Screw Set Titanium Nonsterile 5.5 Mm - [id number] Implanted:Qty: 7 on 03/01/2018 by Reji Marinelli MD at [facility] N/A: Spine Lumbar Medtronic Sofamor Danek [id number] / / Medtronic Sofamor Danek [id number] Cd Horizon 5.5mm 500mm Line Straight Demetrius Spinal Titanium - [id number] Implanted:Qty: 1 on 03/01/2018 by Reji Marinelli MD at [facility] N/A: Spine Lumbar Medtronic Sofamor Danek [id number] / / Explanted Type Area Swedger Device Identifier Shelf Expiration Date Model / Serial / Lot Medtronic Sofamor Danek [id number] Solera Cd Horizon 6.5mm 55mm Multiaxial Spine Screw Bone Cocr - [id number] Explanted:Qty: 1 on 03/01/2018 at [facility] N/A: Spine Lumbar Medtronic Sofamor Danek [id number] / / Procedures Procedure Name Priority Date/Time Associated Diagnosis Comments THYROID FUNCTION CASCADE Routine 01/19/2024 8:58 AM [employer] RIGGER Hyperlipidemia, unspecified hyperlipidemia type COMPREHENSIVE METABOLIC PANEL Routine 01/19/2024 8:58 AM [employer] RIGGER Hyperlipidemia, unspecified hyperlipidemia type COLONOSCOPY 11/30/2022 12:27 PM CDT DIAGNOSTIC MAMMOGRAM BILATERAL W [place] Schedule Routine, Read Routine (OP Routine) 06/11/2021 11:07 AM CDT Dense breast tissue on mammogram PAP AND HIGH RISK HPV, REFLEX TO GENOTYPING Routine 04/29/2021 10:45 AM CDT Routine gynecological examination from Last 3 Months or Most Recently Relevant to Health Maintenance Results * Thyroid Function [place] (01/19/2024 8:58 AM STONE DERRICKMAN [employer] RIGGER) TSH 1.850 0.450 - 4.500 uIU/mL [facility] - Comment: No apparent thyroid disorder. Additional testing not indicated. In rare instances, Secondary Hypothyroidism as well as Subclinical Hypothyroidism have been reported in some patients with normal TSH values. Blood 01/19/2024 8:58 AM STONE [employer]ICKMAN AND RIGGER 01/19/2024 Narrative [facility] - 01/20/2024 8:12 AM STONE DERRICKMAN AND RIGGER Performed at: - [facility] [id number] Assembler Product: Amor Case PhD, Phone: [phone] us Madeline Juarez VIDEO GAME DESIGNER LAB BLOOD ORDERABLES Final Re sult [facility] - * Comprehensive metabolic panel (01/19/2024 8:58 AM STONE DERRICKMAN AND RIGGER) Pathologist [facility] Glucose 96 70 - 99 mg/dL [facility] [...] [facility] - 01 Blood 01/19/2024 8:58 AM STONE [employer]ERRICKMAN AND RIGGER 01/19/2024 Narrative [facility] - 01/20/2024 8:12 AM STONE DERRICKMAN AND RIGGER Performed at: 01 - [facility] [address] [id number] Assembler Product: Amor Case PhD, Phone: [phone] us Madeline Juarez VIDEO GAME DESIGNER LAB BLOOD ORDERABLES Final Re sult [facility] - * COLONOSCOPY (11/30/2022 12:27 PM CDT) Anatomical Region Laterality Modality Other Narrative Procedure Note Miles Lopez MD - 11/30/2022 12:27 PM CDT ENDOSCOPY LAB Patient Name: Humaira English Procedure Date: 11/30/2022 12:27PM Date of : 1970 Admit Type: Outpatient Age: 52 Gender: Female Attending MD: Miles Lopez M.D. Room: [facility] ENDOSCOPY ROOM 03 Note Status: Finalized Procedure: [...] The scope was passed under direct vision.The [id number] was introduced through the anusand advanced to [...] During normal business hours - [facility] [place] [facility]: [phone] After hours, evening, nights, weekends and holidays- Please call the hospital hoop bending machine operator at and ask for the GI fellow customer service sales consultant. Attending Participation: I personally performed the entire [...] CDT 05/01/2021 11:01 AM CDT Narrative PATHOLOGY [facility] - 05/04/2021 12:20 PM CDT EPIC results best viewed via link to PDF [address] [address] Tele: Estelita Jacobson MD - Rug Cleaner CYTOLOGY REPORT Note to Patients: This report [...] the details. Patient Name: HUMAIRA ENGLISH Address: [address] [place] [address] Gender: F : 1970 (Age: 51) Service: Location: N : [id number] [facility] #: [id number] Patient Type: [facility] SPECIMEN Taken: 04/29/2021 Reported: 05/04/2021 Physician(s): Geraldine [...] LAB CYTOLOGY ORDERABLES F inal Result PATHOLOGY [facility] Laboratory Receiving [address] [place] [address] from Last 3 Months or Most Recently Relevant to Health Maintenance Insurance [facility] CHO[facility] PLUS [facility] PLUS [facility] CHO[facility] PLUS [facility] CHO[facility] PLUS Advance Directives For more information, please contact: [phone] * Full Code (Latest Code Status on File) Date Activated Date Inactivated Comments 11/30/2022 11:16 AM 11/30/2022 5:57 PM * Full Code Date Activated Date Inactivated Comments 03/01/2018 11:28 AM 03/06/2018 7:48 PM Care Teams Play Leader Relationship Specialty Start Date End Date Сергей Cota MD [address] [address] PCP - General Endocrinology Diabetes & Metabolism 07/28/22
[2024-04-16 12:01] LABS: Influenza A QL RT-PCR Negative (Negative); Influenza B QL RT-PCR Negative (Negative); RSV RNA, RT-PCR Negative (Negative); SARS-CoV-2 RNA PCR Negative (Negative)
[2024-04-16 14:51] LABS: Troponin I < 0.012 ng/mL (0.000-0.034)
== END 2024-04-16 16:00 | disposition home or self-care (01) ==
PROVIDERS: Emergency Medicine; Emergency Provider Physician Assistant
DX: R07.9 Chest pain, unspecified (principal); Z20.822 Contact with and (suspected) exposure to COVID-19; D68.51 Activated protein C resistance
CPT/HCPCS: 36415; 71046; 80053; 84484; 85025; 85610; 85730; 87637; 93005; 99284

== ENCOUNTER 2024-05-02 09:17 | Outpatient (CLI) | payer OTHER, SELFPAY ==
--- NOTE | 2024-05-02 | EST_ITS ---
Patient Info Name: Humaira Uribe Age: 54 years : 1970 Gender: Female Ht: 63 in Wt: 134 lbs BSA: 1.65 m2 HR: 55 bpm BP: 127 / 82 mmHg Exam Date: 05/02/2024 10:12 AM Exam Location: Echo Lab Patient Status: Outpatient Admit Date: 05/02/2024 Staff Ordering Physician: Yamilet, Mary NELSON Attending Provider: YamiletMary PA-C Exercise Technologist: purvi sheppard Nurse: Marilyn Graham APN Exam Type: CA stress test treadmill w NM Study Info Indications R07.89 - Other chest pain A nuclear stress test was performed. Summary 1. No exercise induced ischemic changes on ECG at submaximal heart rate. 2. Patient only able to achieve 83% of maximal predicted heart rate. 3. Patient also had blunted blood pressure response to exercise. 4. Exercise capacity very good at >10 METS. Exercised for 8 min and 17 seconds. 5. Please correlate with nuclear medicine images, reported separately. Protocol: Michael Stress ECG Details Stage: REST Duration (min): 7 min : 35 sec Speed (mph): 0.0 Grade (%): 0 HR (bpm): 52 SBP (mmHg): --- DBP (mmHg): --- METS: --- Stage: REST Duration (min): 14 min : 48 sec Speed (mph): 0.0 Grade (%): 0 HR (bpm): 85 SBP (mmHg): 127 DBP (mmHg): 82 METS: --- Stage: STAGE 1 Duration (min): 1 min : 0 sec Speed (mph): 1.7 Grade (%): 10 HR (bpm): 103 SBP (mmHg): 127 DBP (mmHg): 82 METS: --- Stage: STAGE 1 Duration (min): 2 min : 0 sec Speed (mph): 1.7 Grade (%): 10 HR (bpm): 104 SBP (mmHg): 127 DBP (mmHg): 82 METS: --- Stage: STAGE 1 Duration (min): 3 min : 0 sec Speed (mph): 1.7 Grade (%): 10 HR (bpm): 104 SBP (mmHg): 121 DBP (mmHg): 83 METS: --- Stage: STAGE 2 Duration (min): 1 min : 0 sec Speed (mph): 2.5 Grade (%): 12 HR (bpm): 114 SBP (mmHg): 121 DBP (mmHg): 83 METS: --- Stage: STAGE 2 Duration (min): 2 min : 0 sec Speed (mph): 2.5 Grade (%): 12 HR (bpm): 119 SBP (mmHg): 121 DBP (mmHg): 83 METS: --- Stage: STAGE 2 Duration (min): 3 min : 0 sec Speed (mph): 2.5 Grade (%): 12 HR (bpm): 124 SBP (mmHg): 120 DBP (mmHg): 77 METS: --- Stage: STAGE 3 Duration (min): 1 min : 0 sec Speed (mph): 3.4 Grade (%): 14 HR (bpm): 135 SBP (mmHg): 114 DBP (mmHg): 72 METS: --- Stage: STAGE 3 Duration (min): 2 min : 0 sec Speed (mph): 3.4 Grade (%): 14 HR (bpm): 134 SBP (mmHg): 114 DBP (mmHg): 72 METS: --- Stage: STAGE 3 Duration (min): 2 min : 17 sec Speed (mph): 3.4 Grade (%): 14 HR (bpm): 136 SBP (mmHg): 114 DBP (mmHg): 72 METS: --- Stage: RECOVERY Duration (min): 0 min : 42 sec Speed (mph): 0.0 Grade (%): 0 HR (bpm): 122 SBP (mmHg): 114 DBP (mmHg): 69 METS: --- Stage: RECOVERY Duration (min): 1 min : 42 sec Speed (mph): 0.0 Grade (%): 0 HR (bpm): 104 SBP (mmHg): 114 DBP (mmHg): 69 METS: --- Stage: RECOVERY Duration (min): 2 min : 42 sec Speed (mph): 0.0 Grade (%): 0 HR (bpm): 83 SBP (mmHg): 122 DBP (mmHg): 74 METS: --- Stage: RECOVERY Duration (min): 3 min : 12 sec Speed (mph): 0.0 Grade (%): 0 HR (bpm): 72 SBP (mmHg): 122 DBP (mmHg): 74 METS: --- Rest HR: 85 bpm Peak HR: 137 bpm Rest Sys BP: 127 mmHg Peak Sys BP: 122 mmHg Max Pred HR: 166 bpm % Max Pred HR: 83 % Target HR: 141 bpm Max RPP: 16,714 bpm*mmHg Rudolph Score: [address] Seg Deviation: -1 mm Total Time: 8 min : 17 sec Rest Finney BP: 82 mmHg Peak Finney BP: 74 mmHg Angina Score: None Total METS: 10.3 Resting ECG Sinus bradycardia with no ischemic ST T wave changes. Stress ECG Sinus tachycardia with no diagnostic ischemic changes on EKG. Arrhythmias Frequent PVCs with exercise and during recovery. Report Signatures
--- NOTE | ~2024-05-02 | NM_ITS ---
EXAMINATION: NM stress w perf spect multi DATE: 05/02/2024 11:14 INDICATION: Chest pain TECHNIQUE: Rest images were obtained following intravenous administration of 10.9 mCi Tc99m tetrofosm in ([employer]). The patient performed an exercise activity. At peak exercise, 35.1 mCi Tc99m tetrofosmi n (Myoview) was administered intravenously, and stress images were obtained. Data was reconstructed i nto short axis and horizontal and vertical long axis SPECT images. Gated SPECT images were also obtai zev. COMPARISON: None. FINDINGS: There is normal left ventricular perfusion without definite evidence of reversible or fixed perfusion abnormality to suggest ischemia or infarction. There is normal left ventricular chamber size, wall motion and ejection fraction. Left ventricular ejection fraction measures 58%. IMPRESSION: 1. Normal myocardial perfusion at rest and during stress. 2. Left ventricular ejection fraction measuring 58%. Reviewed, dictated and finalized at location B.
--- OUTSIDE RECORDS SUMMARY | 2024-05-02 09:58 | XMS_ITS | Encounter Summary ---
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
--- OUTSIDE RECORDS SUMMARY | 2024-05-02 09:58 | XMS_ITS | Data Portability ---
Author Organization [facility] ROCIOJoseph Address [address] [facility] [place] [address] Care Team Providers Care Doctor Of Veterinary Medicine Name Role Phone SOURAV CASSIDY Primary Care [...] folate panel, serum 2024 025 [facility], [address] [place] [address], [address], 5 11:07:37 TSH + free T4, serum 2024 025 [facility], [address] [place] [address] 2, [place], [address], 5 11:07:34 iron + total iron-benja ng capacity (TIBC), serum 2024 025 [facility], [address] [place] [address] 2, [place], [address], 5 11:07:38 ferritin, serum or plasma 2024 025 [facility], [address] [place] [address] [facility] 2, [place], [address], 11:07:40 CBC w/ auto diff 2024 025 [facility], [address] [facility] 2, [place], [address], 5 11:07:41 CMP, serum or plasma 2024 025 [facility], [address] [facility] 2, [place], [address], 11:07:36 Referral None recorded. Procedures None recorded. Surgeries None recorded. Imaging None recorded. Medication Orders None recorded. Patient TargetsNo targets recorded. Patient InstructionsNo instructions recorded. Reason for Referral None Reported. Results Created Date Observation Date Name Description Value Unit Range Abnormal Flag Note LastModifiedBy Organization Detail LastModifiedTime 03/20/1903/21/2024 TSH+F REE T4 TSH 1.770 uIU/m L 0.450- 4.500 Not Available [facility] ([facility]) [address] [place], [address], 03/21/2024 11:07:34 03/20/1903/21/2024 TSH+F REE T4 T4,free(dire ct) 1.17 NG/dL 0.82-1 .77 Not Available [facility] ([facility]) [address] [facility], [place], [address], 03/21/2024 11:07:34 03/20/1903/21/2024 CMP14 +EGFR glucose 83 mg/dL 70-99 Not Available [facility] ([facility]) [address] [facility], [place], [address], 03/21/2024 11:07:36 03/20/1903/21/2024 CMP14 +EGFR BUN 12 mg/dL 6-24 Not Available [facility] ([facility]) [address] [place], [address], 03/21/2024 11:07:36 03/20/19 25 03/21/2024 CMP14 +EGFR creatinine 0.80 mg/dL 0.57-1 .00 Not Available [facility] ([facility]) [address] [facility], [place], [address], 03/21/2024 11:07:36 03/20/19 25 03/21/2024 CMP14 +EGFR eGFR 88 mL/mi n/1.7 3 >59 Not Available [facility] ([facility]) [address] [facility], [place], [address], 03/21/2024 11:07:36 03/20/19 25 03/21/2024 CMP14 +EGFR BUN/creatini ne ratio 15 9-23 Not Available [facility] ([facility]) [address] [facility], [place], [address], 03/21/2024 11:07:36 03/20/19 25 03/21/2024 CMP14 +EGFR sodium 143 mmol/ L 134-14 4 Not Available [facility] ([facility]) [address] [facility], [place], [address], 03/21/2024 11:07:36 03/20/19 25 03/21/2024 CMP14 +EGFR potassium 4.2 mmol/ L 3.5-5. 2 Not Available [facility] ([facility]) [address] [place], [address], 03/21/2024 11:07:36 03/20/19 25 03/21/2024 CMP14 +EGFR chloride 103 mmol/ L 96-106 Not Available [facility] ([facility]) [address] [place], [address], 03/21/2024 11:07:36 03/20/19 25 03/21/2024 CMP14 +EGFR carbon dioxide, total 26 mmol/ L 20-29 Not Available [facility] ([facility]) [address] [place], [address], 03/21/2024 11:07:36 03/20/19 25 03/21/2024 CMP14 +EGFR calcium 9.7 mg/dL 8.7-10 .2 Not Available [facility] ([facility]) [address] [facility], [place], [address], 03/21/2024 11:07:36 03/20/19 25 03/21/2024 CMP14 +EGFR protein, total 7.1 g/dL 6.0-8. 5 Not Available [facility] ([facility]) [address] [facility] [place], [address], 03/21/2024 11:07:36 03/20/19 25 03/21/2024 CMP14 +EGFR albumin 4.8 g/dL 3.8-4. 9 Not Available [facility] ([facility]) [address] [place], [address], 03/21/2024 11:07:36 03/20/19 25 03/21/2024 CMP14 +EGFR globulin, total 2.3 g/dL 1.5-4. 5 Not Available [facility] ([facility]) [address] [place], [address], 03/21/2024 11:07:36 03/20/19 25 03/21/2024 CMP14 +EGFR bilirubin, total 0.4 mg/dL 0.0-1. 2 Not Available [facility] ([facility]) [address] [place], [address], 03/21/2024 11:07:36 03/20/19 25 03/21/2024 CMP14 +EGFR alkaline phosphatase 72 IU/L 44-121 Not Available [facility] ([facility]) [address] [place], [address], 03/21/2024 11:07:36 03/20/19 25 03/21/2024 CMP14 +EGFR AST (SGOT) 35 IU/L 0-40 Not Available [facility] ([facility]) [address] [facility] [place], [address], 03/21/2024 11:07:36 03/20/19 25 03/21/2024 CMP14 +EGFR ALT (SGPT) 45 IU/L 0-32 above high normal Not Available [facility] ([facility]) [address] [facility] [place], [address], 03/21/2024 11:07:36 03/20/19 25 03/21/2024 VITAM IN B12 AND FOLAT E vitamin B12 1002 pg/mL 232-12 45 Not Available [facility] ([facility]) [address] [place], [address], 03/21/2024 11:07:37 03/20/19 25 03/21/2024 VITAM IN B12 AND FOLAT E folate (folic acid), serum >20.0 NG/mL >3.0 A serum folat e hayder ntrat ion of less than 3.1 ng/mL is consi dered to repre sent clini hans defic iency . Not Available [facility] ([facility]) [address] [place], [address], 03/21/2024 11:07:37 03/20/19 25 03/21/2024 IRON AND TIBC iron bind.cap.(TI BC) 307 ug/dL 250-45 0 Not Available [facility] ([facility]) [address] [place], [address], 03/21/2024 11:07:38 03/20/19 25 03/21/2024 IRON AND TIBC UIBC 168 ug/dL 131-42 5 Not Available [facility] ([facility]) [address] [place], [address], 03/21/2024 11:07:38 03/20/19 25 03/21/2024 IRON AND TIBC iron 139 ug/dL 27-159 Not Available [facility] ([facility]) [address] [place], [address], 03/21/2024 11:07:38 03/20/19 25 03/21/2024 IRON AND TIBC iron saturation 45 % 15-55 Not Available [facility] ([facility]) [address] [place], [address], 03/21/2024 11:07:38 03/20/19 25 03/21/2024 SHANNAN TIN ferritin 147 NG/mL 15-150 Not Available [facility] ([facility]) [address] [place], [address], 03/21/2024 11:07:40 03/20/19 25 03/20/2024 CBC WITH DIFFE RENTI AL/PL ATELE T WBC 4.4 x10e3 /uL 3.4-10 .8 Not Available [facility] ([facility]) [address] [place], [address], 03/21/2024 11:07:41 03/20/19 25 03/20/2024 CBC WITH DIFFE RENTI AL/PL ATELE T RBC 4.64 x10e6 /uL 3.77-5 .28 Not Available [facility] ([facility]) [address] [place], [address], 03/21/2024 11:07:41 03/20/19 25 03/20/2024 CBC WITH DIFFE RENTI AL/PL ATELE T hemoglobin 13.8 g/dL 11.1-1 5.9 Not Available [facility] ([facility]) [address] [place], [address], 03/21/2024 11:07:41 03/20/19 25 03/20/2024 CBC WITH DIFFE RENTI AL/PL ATELE T hematocrit 42.1 % 34.0-4 6.6 Not Available [facility] ([facility]) [address] [facility], [address], 03/21/2024 11:07:41 03/20/19 25 03/20/2024 CBC WITH DIFFE RENTI AL/PL ATELE T MCV 91 fL 79-97 Not Available [facility] ([facility]) [address] [facility], [place], [address], 03/21/2024 11:07:41 03/20/19 25 03/20/2024 CBC WITH DIFFE RENTI AL/PL ATELE T MCH 29.7 pg 26.6-3 3.0 Not Available [facility] ([facility]) [address] [facility], [place], [address], 03/21/2024 11:07:41 03/20/19 25 03/20/2024 CBC WITH DIFFE RENTI AL/PL ATELE T MCHC 32.8 g/dL 31.5-3 5.7 Not Available [facility] ([facility]) [address] [facility], [place], [address], 03/21/2024 11:07:41 03/20/19 25 03/20/2024 CBC WITH DIFFE RENTI AL/PL ATELE T RDW 12.8 % 11.7-1 5.4 Not Available [facility] ([facility]) [address] [facility], [place], [address], 03/21/2024 11:07:41 03/20/19 25 03/20/2024 CBC WITH DIFFE RENTI AL/PL ATELE T platelets 260 x10e3 /uL 150-45 0 Not Available [facility] ([facility]) [address] [place], [address], 03/21/2024 11:07:41 03/20/19 25 03/20/2024 CBC WITH DIFFE RENTI AL/PL ATELE T neutrophils 46 % notest ab. Not Available [facility] ([facility]) [address] [facility], [place], [address], 03/21/2024 11:07:41 03/20/19 25 03/20/2024 CBC WITH DIFFE RENTI AL/PL ATELE T lymphs 43 % notest ab. Not Available [facility] ([facility]) [address] [facility], [place], [address], 03/21/2024 11:07:41 03/20/19 25 03/20/2024 CBC WITH DIFFE RENTI AL/PL ATELE T monocytes 8 % notest ab. Not Available [facility] ([facility]) [address] [facility], [place], [address], 03/21/2024 11:07:41 03/20/19 25 03/20/2024 CBC WITH DIFFE RENTI AL/PL ATELE T eos 2 % notest ab. Not Available [facility] ([facility]) [address] [place], [address], 03/21/2024 11:07:41 03/20/19 25 03/20/2024 CBC WITH DIFFE RENTI AL/PL ATELE T basos 1 % notest ab. Not Available [facility] ([facility]) [address] [facility], [place], [address], 03/21/2024 11:07:41 03/20/19 25 03/20/2024 CBC WITH DIFFE RENTI AL/PL ATELE T neutrophils (absolute) 2.0 x10e3 /uL 1.4-7. 0 Not Available [facility] ([facility]) [address] [facility], [place], [address], 03/21/2024 11:07:41 03/20/19 25 03/20/2024 CBC WITH DIFFE RENTI AL/PL ATELE T lymphs (absolute) 1.9 x10e3 /uL 0.7-3. 1 Not Available [facility] ([facility]) [address] [place], [address], 03/21/2024 11:07:41 03/20/19 25 03/20/2024 CBC WITH DIFFE RENTI AL/PL ATELE T monocytes(ab solute) 0.4 x10e3 /uL 0.1-0. 9 Not Available [facility] ([facility]) [address] [facility], [place], [address], 03/21/2024 11:07:41 03/20/19 25 03/20/2024 CBC WITH DIFFE RENTI AL/PL ATELE T eos (absolute) 0.1 x10e3 /uL 0.0-0. 4 Not Available [facility] ([facility]) [address] [place], [address], 03/21/2024 11:07:41 03/20/19 25 03/20/2024 CBC WITH DIFFE RENTI AL/PL ATELE T baso (absolute) 0.0 x10e3 /uL 0.0-0. 2 Not Available [facility] ([facility]) [address] [facility], [place], [address], 03/21/2024 11:07:41 03/20/19 25 03/20/2024 CBC WITH DIFFE RENTI AL/PL ATELE T immature granulocytes 0 % notest ab. Not Available [facility] ([facility]) [address] [place], [address], 03/21/2024 11:07:41 03/20/19 25 03/20/2024 CBC WITH DIFFE RENTI AL/PL ATELE T immature grans (abs) 0.0 x10e3 /uL 0.0-0. 1 Not Available [facility] ([facility]) [address] [place], [address], 03/21/2024 11:07:41 Result Notes None recorded. Problems Name Problem SNOMED Code Status Onset Date Resolution Date Notes Provider Name and Address Organization Details Recorded Time Body mass index 20-24 - normal 282039548 Active 025 Carolina Mckeon MA null, [place] - [facility] 15:03:22 Loss of hair 959355306 Active 025 VANESSA Bustos Attn: Bernardo peralta,[address] [place], [address], [facility] - [facility] 5 10:43:49 Family history of premature coronary heart disease 761204451 Active 025 VANESSA Bustos Attn: Bernardo peralta,[address] [facility], [place], [address], [facility] - SI 5 14:21:28 Problem Notes None recorded. Procedures Surgical History Date Name Laterality Status Provider Name and Address Organization Details Recorded Time 04/06/18 84 Arthroscopic Surgery completed Carolnia Mckeon MA [facility] 03/11/2024 16:04:24 02/17/18 83 Appendectomy completed Carolina Mckeon MA [facility] 03/11/2024 16:04:06 Back Surgery completed Carolina Mckeon MA [facility] 03/11/2024 16:04:32 Breast Surgery completed Carolina Mckeon MA [facility] 03/11/2024 16:04:40 Imaging Results None recorded. Procedure Notes None recorded. Medical Equipment None Reported. Allergies Allergen ID Allergen Name Allergen Category Reaction Reaction Severity Criticality Documentation Date Start Date Code Code System Note Provider Name and Address Organization Details Recorded Time 721967 cephalexi n medicatio n Not available Not available Not available 03/11/2024 2231 RxNorm Not Available Not Available Not Available 145259 Product containin g penicilli n (product) medicatio n Not available Not available Not available 03/11/2024 45753 8001 SNOMED Not Available Not Available Not Available Medications Name Sig Start Date Stop Date Status Note LastModified by Organization Details LastModified Time cephalexin 03/11 completed Not Available Not Available Not Available clobetasol 0.025 % topical cream APPLY A THIN LAYER TO THE AFFECTED AREA(S) BY TOPICAL ROUTE 2 TIMES PER DAY ; RUB IN GENTLY AND COMPLETEL Y active Not Available Not Available No t Available ashwagandha root extract active otc Not Available Not Available Not Available Vitals Date Recorded Body weight Respiratory rate Body mass index (BMI) Body height Oxygen saturation Oxygen saturation in Arterial blood by Pulse oximetry Heart rate Systolic blood pressure Diastolic blood pressure Provider Name and Address Organization Details Last Updated DateTime 72514.5 6 g 18 /min 23.9 kg/m2 160.66 cm 97 % 97 % 65 /min 118 mm[Hg] 82 mm[Hg] Carolina Mckeon MA [facility] 15:07:13 Date Recorded Systolic blood pressure Diastolic blood pressure Provider Name and Address Organization Details Last Updated DateTime 03/11/2024 120 mm[Hg] 80 mm[Hg] VANESSA Bustos Attn: Accounting,[address] [place], [address], [facility] 03/11/2024 15:38:01 Date Recorded Body height Body mass index (BMI) Body weight Respiratory rate Oxygen saturation Oxygen saturation in Arterial blood by Pulse oximetry Heart rate Systolic blood pressure Diastolic blood pressure Provider Name and Address Organization Details Last Updated DateTime 160.66 cm 23 kg/m2 16511.6 g 18 /min 97 % 97 % 68 /min 122 mm[Hg] 80 mm[Hg] Carolina Mckeon MA [facility] 14:05:22 Date Recorded Systolic blood pressure Diastolic blood pressure Provider Name and Address Organization Details Last Updated DateTime 04/18/2024 120 mm[Hg] 80 mm[Hg] VANESSA Bustos Attn: Accounting,[address] [place], [address], [facility] 04/18/2024 14:29:42 Social History Question Answer Notes LastModified by Organizat ion Details LastModified Time Tobacco Smoking Status Never Smoker Carolina Mckeon MA null, [facility] 03/11/2024 15:05:07 Do You Have An Advance [...] Date Of Your Most Recent Tobacco Screening? 04/18/2024 Information not available 04/18/2024 What Is Your Relationship Status? Information not available 03/11/2024 Do You Use Your Seat Belt Or Car Seat Routinely? Yes Information not available 03/11/2024 Do You Have Smoke And Carbon Monoxide Detectors In Your Home? Yes Information not available 03/11/2024 Do You Feel Stressed (tense, Restless, Nervous, Or Anxious, Or Unable To Sleep At Night)? [id number] Information not available 03/11/2024 Do You Use [...] Response Coronary Artery Disease N Other N Atrial Fibrillation N High Blood Pressure N Kidney or Bladder Problems N Thyroid Problems N GI Problems N Depression N COPD N Blood Clots N Have you had a mammogram in the last yea r? N Skin Problems N Anemia N Heart Attack (ME) N Anxiety Disorder N Diabetes N Muscle, [...] [facility] 03/11/2024 14:59:42 zoster recombinant 02/01/2022 completed YONATHAN [place], [place] - [facility] 03/11/2024 14:59:42 COVID-19, mRNA, LNP-S, PF, 30 mcg/0.3 mL dose 04/30/2020 completed Carolina Mcke[place], [place] [facility] 03/11/2024 14:59:42 COVID-19, mRNA, LNP-S, PF, 30 mcg/0.3 mL dose 05/21/2020 completed YONATHAN [place] [facility] 03/11/2024 14:59:42 COVID-19, mRNA, LNP-S, PF, 30 mcg/0.3 mL dose 02/02/2021 completed [place]ON[place] [facility] 03/11/2024 14:59:42 COVID-19, mRNA, LNP-S, PF, 30 mcg/0.3 mL dose, cj-sucrose 08/26/2021 completed [place]ON[place] [facility] 03/11/2024 14:59:42 Tdap 03/09/2022 completed YON[place] [facility] 03/11/2024 14:59:42 Influenza, split virus, quadrivalent, PF 11/24/2020 completed [place] [facility] 03/11/2024 14:59:42 Influenza, MDCK, trivalent, PF 02/21/2024 completed Y[place] [facility] 03/11/2024 14:59:42 Past Encounters Encounter ID Performer Location Encounter Start Date Encounter Closed Date Diagnosis/Indication Diagnosis SNOMED-CT Code Diagnosis ICD10 Code Diagnosis Note [id number] VANESSA Bustos [facility] [place] [address] [place] [address] 03/11/2024 14:47:11 03/11/2024 16:09:03 Body mass index 20-24 - normal 701069082 Z68.23 BMI is 23.9 [facility] th examination 065617211 Z00.00 New patient annual wellness exam completed Loss of hair 658837055 L 65.9 Patient's focus on her review of systems is her hair loss that she has had. She is interested in more in-depth labs to evaluate. We will order vitamin B12 and folate as well as thyroid function testing iron studies CBC and CMP. [id number] VANESSA Bustos [facility] - [place] [address] [place] [address] 04/18/2024 13:41:07 04/18/2024 14:35:40 Body mass index 20-24 - normal 474305311 Z68.23 BMI is 23.9 Atypical chest pain 1025 59845 R07.89 Family his tory of premature coronary heart disease 078399646 Z82.49 Polyp of nasal sinus 323 56140 J33.8 Health Concerns Section Related Observation LastModified by Organization Detai ls LastModified Time None Recorded Concern Status LastModified by Organization Details LastModified Time None Recorded Advance Directives Directive Y: Payers Encounter Date Sequence Insurance Name Policy Number Policy Kim Covered Member ID Kim Member ID Guarantor Name 03/11/2024 1 [facility] [id number] Talat Uribe [id number] Humaira Uribe Notes Date Note Type Note [...] per her report. VANESSA Bustos Attn: Accounting,[address] [facility], [place], [address], [facility] - [facility] 03/31/2024 10:44:17 OBGyn Episode No OBEpisode recorded.
--- OUTSIDE RECORDS SUMMARY | 2024-05-02 09:59 | XMS_ITS | Referral Summary ---
Author Organization [facility] Address [address] [place] [id number] Care Team Providers Care Metalsmith Helper Name Role Phone Mary Woodard Primary Care Pr ovider Encounters Date Type Department Care Team Description 04/30/2024 Results Follow-Up [facility] [address] [place] [address] Xiao Gaxiola MD 04/16/2024 5:13 PM CDT - 04/16/2024 11:59 PM CDT Hospital Encounter [facility] [address] [place] [address] Abnormal mammogram; Heterogeneously dense tissue of both breasts on mammography Discharge Disposition: Discharge to home or self care 03/12/2024 Telephone [facility] Obstetrics and Gynecology [facility] [place] [address] Marielena Pereira Scheduling Appointments (/) 02/23/2024 Orders Only [facility] Obstetrics and Gynecology [address] [facility] 7th Floor [address] [place] [address] Rikki Alvarado RN Abnormal mammogram (Primary Dx) from Last 3 Months Allergies Active Allergy Reactions Criticality Noted Date Comments Cefazolin Unknown 10/31/2017 Cephalexin Rash Medium 10/31/2017 Penicillins Rash Medium Medications qoirjzbk-cfvj-g in-folic acid 18-0.4 mg tabletIndicatio ns:Mineral Deficiency [...] 03/09/2022 Assessment & Plan (03/09/2022 4:03 PM CONTROL CLERK AUDITING): Recommend healthy diet and regular exercise. Discussed immunization against tetanus, influenza and COVID-19. Discussed screening for cervical cancer. She has been following up with OBGYN. Reviewed Pap smear from 04/2021. Discussed screening for colon cancer here discussed screening for breast cancer. Screening for diabetes mellitus 03/09/2022 Assessment & Plan (03/09/2022 4:03 PM CONTROL CLERK AUDITING): Discussed screening for diabetes Screening for colon cancer 03/09/2022 Assessment & Plan (03/09/2022 4:04 PM CONTROL CLERK AUDITING): Discussed screening for colon cancer. Ordering a colonoscopy. Factor V Leiden carrier 03/09/2022 Overweight 03/09/2022 Assessment & Plan (03/09/2022 4:04 PM CONTROL CLERK AUDITING): Recommend weight loss through healthy diet and regular exercise. Recommended dietitian referral. We will follow-up with A1c. She is interested in medication for weight loss. Postoperative pain after spinal surgery 03/08/19 19 Abnormal mammogram 12/11/2017 Assessment & Plan (01/26/2024 3:49 PM CONTROL CLERK AUDITING): Pt with history of abnormal MMGs and [...] (12/08/2017): Added automatically from request for surgery [id number] DDD (degenerative disc disease), lumbar 12/09/19 Overview (12/08/2017): Added automatically from request for surgery [id number] Spondylolisthesis of lumbosacral region 11/11/19 Overview (11/10/2017): Added automatically from request for surgery [id number] Annular tear of lumbar disc 10/31/2017 Chronic bilateral low back pain without sciatica 10/31/2017 Discogenic low back pain 10/31/2017 Other chronic pain 10/31/2017 Factor V Leiden 01/08/2013 Assessment & Plan (03/09/2022 4:03 PM CONTROL CLERK AUDITING): She has a family history of factor [...] on file Legal Sex Female 11:23 AM CONTROL CLERK AUDITING Gender Identity Not on file Sexual Orientation Not on file Last Filed Vital Signs Vital Sign Reading Time Taken Comments Blood Pressure 118/81 01/26/2024 2:51 PM CONTROL CLERK AUDITING Pulse 64 01/26/2024 2:51 PM CONTROL CLERK AUDITING Temperature 36.2 C (97.2 F) 11/30/2022 1:05 PM CDT Respiratory Rate 16 03/06/2018 8:45 AM CONTROL CLERK AUDITING Oxygen Saturation 99% 11/17/2023 9:58 AM CDT Inhaled Oxygen Concentration - - Weight 59.4 kg (131 lb) 04/16/2024 5:30 PM CDT Height 160 cm (5' 3 ) 04/16/2024 5:30 PM CDT Body Mass Index 23.21 04/16/2024 5:30 PM CDT Plan of Treatment Scheduled Procedures Name Priority Associated Diagnoses Date/Ti me COLONOSCOPY Colon cancer screening COLONOSCOPY Colon cancer screening Medical Devices Implanted Type Area Windows Server Support Technician Device Identifier Shelf Expiration Date Model / Serial / Lot Medtronic Sofamor Danek [id number] Mastergraft Block Void Filler Substitute 20ml Bone Graft Matrix - [id number] Implanted:Qty: 1 on 03/01/2018 by Reji Marinelli MD at [facility] N/A: Spine Lumbar Medtronic Sofamor Danek [id number] 02/06/2020 [id number] / / [id number] Medtronic Inc [id number] 8.5mm 70mm Multiaxial Cannulated Thoracolumbar Screw Bone - [id number] Implanted:Qty: 1 on 03/01/2018 by Reji Marinelli MD at [facility] N/A: Spine Lumbar Medtronic Inc [id number] / / Medtronic Sofamor Danek [id number] Infuse 18mm 26mm Absorbable Sponge Sterile Water Syringe Needle - [id number] Implanted:Qty: 1 on 03/01/2018 by Reji Marinelli MD at [facility] N/A: Spine Lumbar Medtronic Sofamor Danek 07/07/2019 [id number] / / [id number] Medtronic Sofamor Danek [id number] Infuse 18mm 26mm Absorbable Sponge Sterile Water Syringe Needle - [id number] Implanted:Qty: 1 on 03/01/2018 by Reji Marinelli MD at [facility] N/A: Spine Lumbar Medtronic Sofamor Danek 07/07/2019 [id number] / / [id number] [employer] [id number] - [id number] - [id number] Implanted:Qty: 1 on 03/01/2018 by Reji Marinelli MD at [facility] N/A: Spine Lumbar [employer] 01/12/2023 [id number] / [id number] / Medtronic Sofamor Danek [id number] Solera Cd Horizon 6.5mm 50mm Multiaxial Spine Screw Bone Cocr - [id number] Implanted:Qty: 5 on 03/01/2018 by Reji Marinelli MD at [facility] N/A: Spine Lumbar Medtronic Sofamor Danek [id number] / / Medtronic Sofamor Danek [id number] 5.5mm 55mm Multiaxial Spine Screw Bone Cocr 5.5mm Demetrius - [id number] Implanted:Qty: 1 on 03/01/2018 by Reji Marinelli MD at [facility] N/A: Spine Lumbar Medtronic Sofamor Danek [id number] / / Medtronic Sofamor Danek [id number] Cd Horizon Break Off Spinal Screw Set Titanium Nonsterile 5.5 Mm - [id number] Implanted:Qty: 7 on 03/01/2018 by Reji Marinelli MD at [facility] N/A: Spine Lumbar Medtronic Sofamor Danek [id number] / / Medtronic Sofamor Danek [id number] Cd Horizon 5.5mm 500mm Line Straight Demetrius Spinal Titanium - [id number] Implanted:Qty: 1 on 03/01/2018 by Reji Marinelli MD at [facility] N/A: Spine Lumbar Medtronic Sofamor Danek [id number] / / Explanted Type Area Windows Server Support Technician Device Identifier Shelf Expiration Date Model / Serial / Lot Medtronic Sofamor Danek [id number] Solera Cd Horizon 6.5mm 55mm Multiaxial Spine Screw Bone Cocr - [id number] Explanted:Qty: 1 on 03/01/2018 at [facility] N/A: Spine Lumbar Medtronic Sofamor Danek [id number] / / Procedures Procedure Name Priority Date/Time Associated Diagnosis Comments MRI BREAST BILATERAL W WO CONTRAST Schedule Routine, Read Routine (OP Routine) 04/16/2024 6:23 PM CDT Abnormal mammogram Heterogeneously dense tissue of both breasts on mammography COLONOSCOPY 11/30/2022 12:27 PM CDT DIAGNOSTIC MAMMOGRAM BILATERAL W LISSETTE Schedule Routine, Read Routine (OP Routine) 06/11/2021 11:07 AM CDT Dense breast tissue on mammogram PAP AND HIGH RISK HPV, REFLEX TO GENOTYPING Routine 04/29/2021 10:45 AM CDT Routine gynecological examination from Last 3 Months or Most Recently Relevant to Health Maintenance Results * MRI Breast Bilateral W WO Contrast (04/16/2024 6:23 PM CDT) Anatomical Region Laterality Modality Breast Bilateral Magnetic Resonan ce 04/17/2024 11:2 6 AM CDT Impressions 04/17/2024 12:24 PM CDT 1 cm oval mass with heterogeneous enhancement in the posterior upper central LEFT breast. The method of initial detection of finding was screening MRI (Smri). OVERALL FINAL ASSESSMENT: SUSPICIOUS. BI-RADS Category 4A: Low suspicion for malignancy. RECOMMENDATION: Targeted ultrasound is recommended of the left posterior upper central breast mass. The patient will also be due for yearly mammogram at the time of ultrasound. If there is no sonographic correlate for the left breast mass, MRI guided biopsy is recommended. Dictated by: Jamil Olmos MD The radiology attending physician has personally reviewed this study, and had reviewed and/or edited this written report and agrees with it. Electronically signed by: Aminta Mac M.D. Narrative 04/17/2024 12:24 PM CDT EXAMINATION: 1. MRI EXAMINATION OF THE BREASTS WITH AND WITHOUT CONTRAST 2. 3D POST PROCESSING ON A DEDICATED 3D WORKSTATION HISTORY: High-risk Screening. 54-year-old woman with dense breasts. Patient has history of prior benign core needle biopsy of the RIGHT breast. TECHNIQUE: MRI examination of the breasts per breast tumor protocol with and without gadolinium contrast. A dedicated breast imaging coil was used. The images were transferred to a breast CAD system for 3D post processing and contrast kinetics analysis. CONTRAST: Gadoterate meglumine, 10 ml COMPARISON: Mammogram 06/11/2021 mammogram and ultrasound 11/21/2017. No prior breast MRI. BREAST COMPOSITION: Heterogeneous fibroglandular tissue BACKGROUND PARENCHYMAL ENHANCEMENT: Minimal FINDINGS: Evaluation is limited by motion/misregistration on the subtraction images. There is 1 cm oval mass with heterogeneous enhancement in the left posterior upper central breast (H55.2; series 10017, image 144). Enhancement is subthreshold for kinetics evaluation. This finding is best seen on the second and third postcontrast sequences. There is no T2 hyperintense correlate. Given limitations as above, there is no suspicious enhancing mass or non-mass enhancement in the RIGHT breast. No abnormally enlarged lymph nodes are identified in the visualized portions of either axilla. Procedure Note Aminta Mac MD - 04/17/2024 EXAMINATION: 1. MRI EXAMINATION OF THE BREASTS WITH AND WITHOUT CONTRAST 2. 3D POST PROCESSING ON A DEDICATED 3D WORKSTATION HISTORY: High-risk Screening. 54-year-old woman with dense breasts. Patient has history of prior benign core needle biopsy of the RIGHT breast. TECHNIQUE: MRI examination of the breasts per breast tumor protocol with and without gadolinium contrast. A dedicated breast imaging coil was used. The images were transferred to a breast CAD system for 3D post processing and contrast kinetics analysis. CONTRAST: Gadoterate meglumine, 10 ml COMPARISON: Mammogram 06/11/2021 mammogram and ultrasound 11/21/2017. No prior breast MRI. BREAST COMPOSITION: Heterogeneous fibroglandular tissue BACKGROUND PARENCHYMAL ENHANCEMENT: Minimal FINDINGS: Evaluation is limited by motion/misregistration on the subtraction images. There is 1 cm oval mass with heterogeneous enhancement in the left posterior upper central breast (H55.2; series 12766, image 144). Enhancement is subthreshold for kinetics evaluation. This finding is best seen on the second and third postcontrast sequences. There is no T2 hyperintense correlate. Given limitations as above, there is no suspicious enhancing mass or non-mass enhancement in the RIGHT breast. No abnormally enlarged lymph nodes are identified in the visualized portions of either axilla. IMPRESSION: 1 cm oval mass with heterogeneous enhancement in the posterior upper central LEFT breast. The method of initial detection of finding was screening MRI (Smri). OVERALL FINAL ASSESSMENT: SUSPICIOUS. BI-RADS Category 4A: Low suspicion for malignancy. RECOMMENDATION: Targeted ultrasound is recommended of the left posterior upper central breast mass. The patient will also be due for yearly mammogram at the time of ultrasound. If there is no sonographic correlate for the left breast mass, MRI guided biopsy is recommended. Dictated by: Jamil Olmos MD The radiology attending physician has personally reviewed this study, and had reviewed and/or edited this written report and agrees with it. Electronically signed by: Aminta Mac M.D. us Xiao Gaxiola MD IMG MRI PROCEDURES Final Resu lt * COLONOSCOPY (11/30/2022 12:27 PM CDT) Anatomical Region Laterality Modality Other Narrative Procedure Note Miles Lopez MD - 11/30/2022 12:27 PM CDT ENDOSCOPY LAB Patient Name: Humaira English Procedure Date: 11/30/2022 12:27PM Date of : 1970 Admit Type: Outpatient Age: 52 Gender: Female Attending MD: Miles Lopez M.D. Room: [facility] ENDOSCOPY ROOM 03 Note Status: Finalized [...] The scope was passed under direct vision.The [id number] was introduced through the anusand advanced to [...] During normal business hours - Please call theNurse Coordinator: [phone] After hours, evening, nights, weekends and holidays- Please call the hospital corduroy brusher operator at and ask for the GI fellow material handler floorperson. Attending Participation: I personally performed the entire [...] Electronically signed by: Lyndon Moore MD Geraldine Mancnii MD IM MAMMO PROCEDURES Evie l Result * Pap and High Risk HPV, reflex to Genotyping (04/29/2021 10:45 AM CDT) Thin prep (Pap test) 04/29/2021 10:45 AM CDT 05/01/2021 11:01 AM CDT Narrative PATHOLOGY [facility] - 05/04/2021 12:20 PM CDT EPIC results best viewed via link to PDF [address] [address] Tele: Estelita Jacobson MD - Lead Applications Developer CYTOLOGY REPORT Note to Patients: This report [...] the details. Patient Name: HUMAIRA ENGLISH Address: [address] [place] [address] Gender: F : 1970 (Age: 51) Service: Location: [facility] #: [id number] [place] [facility] [place]: 04/29/2021 Reported: 05/04/2021 Physician(s): Geraldine [...] LAB CYTOLOGY ORDERABLES F inal Result PATHOLOGY [facility] Laboratory Receiving [address] [place] [address] from Last 3 Months or Most Recently Relevant to Health Maintenance Insurance [facility] Advance Directives For more information, please contact: [phone] * Full Code (Latest Code Status on File) Date Activated Date Inactivated Comments 11/30/2022 11:16 AM 11/30/2022 5:57 PM * Full Code Date Activated Date Inactivated Comments 03/01/2018 11:28 AM 03/06/2018 7:48 PM Care Teams Metalsmith Helper Relationship Specialty Start Date End Date Mary Woodard PA [address] [place] [address] PCP - General Physician Site Physician 04/23/24
--- OUTSIDE RECORDS SUMMARY | 2024-05-02 09:59 | XMS_ITS | CONTINUITY OF CARE DOCUMENT ---
Author Name vidal drake Address Unknown Organization [facility] Address [address] [place] [address] [address] [place] [address] Phone [phone] Care Team Providers Care Internal Medicine Veterinary Technician Name Role Phone Tena Andrews MD Unavailable Tena Andrews MD Unavailable PROBLEMS Condition Status Date Provider Notes Cardiovascular screening active Humaira Kamara INSURANCE PROVIDERS Payer name Policy type / Coverage type [employer] party ID SELF PAY TREATMENT PLAN Date Name CT, Coronary Calcium Score HISTORY OF PROCEDURES Procedure Date Procedure Name Provider Procedure Notes S tatus CT- Coronary CA score Tena Andrews MD completed
--- OUTSIDE RECORDS SUMMARY | 2024-05-02 09:59 | XMS_ITS | Encounter Summary ---
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
--- OUTSIDE RECORDS SUMMARY | 2024-05-02 09:59 | XMS_ITS | Clinical Summary ---
Author Organization [facility] Address [address] [place] [id number] Care Team Providers Care Delivery Table Operator Name Role Phone Mary Woodard Primary Care Pr ovider Allergies Active Allergy Reactions Criticality Noted Date Comments Cefazolin Unknown 10/31/2017 Cephalexin Rash Medium 10/31/2017 Penicillins Rash Medium Medications ggnwgpna-oueg-q in-folic acid 18-0.4 mg tabletIndicatio ns:Mineral Deficiency [...] 03/09/2022 Assessment & Plan (03/09/2022 4:03 PM STRAP STITCHER): Recommend healthy diet and regular exercise. Discussed immunization against tetanus, influenza and COVID-19. Discussed screening for cervical cancer. She has been following up with OBGYN. Reviewed Pap smear from 04/2021. Discussed screening for colon cancer here discussed screening for breast cancer. Screening for diabetes mellitus 03/09/2022 Assessment & Plan (03/09/2022 4:03 PM STRAP STITCHER): Discussed screening for diabetes Screening for colon cancer 03/09/2022 Assessment & Plan (03/09/2022 4:04 PM STRAP STITCHER): Discussed screening for colon cancer. Ordering a colonoscopy. Factor V Leiden carrier 03/09/2022 Overweight 03/09/2022 Assessment & Plan (03/09/2022 4:04 PM STRAP STITCHER): Recommend weight loss through healthy diet and regular exercise. Recommended dietitian referral. We will follow-up with A1c. She is interested in medication for weight loss. Postoperative pain after spinal surgery 03/08/19 19 Abnormal mammogram 12/11/2017 Assessment & Plan (01/26/2024 3:49 PM STRAP STITCHER): Pt with history of abnormal MMGs and [...] (12/08/2017): Added automatically from request for surgery [id number] DDD (degenerative disc disease), lumbar 12/09/19 Overview (12/08/2017): Added automatically from request for surgery [id number] Spondylolisthesis of lumbosacral region 11/11/19 Overview (11/10/2017): Added automatically from request for surgery [id number] Annular tear of lumbar disc 10/31/2017 Chronic bilateral low back pain without sciatica 10/31/2017 Discogenic low back pain 10/31/2017 Other chronic pain 10/31/2017 Factor V Leiden 01/08/2013 Assessment & Plan (03/09/2022 4:03 PM STRAP STITCHER): She has a family history of factor 5 laden deficiency. 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 Encounters Date Type Department Care Team Description 04/30/2024 Results Follow-Up [facility] [address] [place] [address] Xiao Gaxiola MD 04/16/2024 5:13 PM CDT - 04/16/2024 11:59 PM CDT Hospital Encounter [facility] [address] [place] [id number] Abnormal mammogram; Heterogeneously dense tissue of both breasts on mammography Discharge Disposition: Discharge to home or self care 03/12/2024 Telephone [facility] Obstetrics and Gynecology [address] [place] [address] Marielena Pereira Scheduling Appointments (/) 02/23/2024 Orders Only [facility] Obstetrics and Gynecology [address] [facility] 7th Floor [address] [place] [id number] Rikki Alvarado RN Abnormal mammogram (Primary Dx) from Last 3 Months Immunizations Immunization Administration [...] controlled w/ protein & carbs; follows w/ registered nurse teacher at [facility] Hypoglycemia Hyperlipidemia 07/28/2022 Delayed emergence from gener al anesthesia Family History Medical History Relation Name Comments Atrial fibrillation Father Jose Martinez Coronary artery disease Father Jose Martinez Hypertension Father Jose Martinez Melanoma Father's Brother 1 Cancer Father's Brother 2 Lavell Juan Atrial fibrillation Maternal Grandfather Rigo Viera Diabetes Maternal Grandfather Rigo Viera Hypertension Maternal Grandfather Rigo Viera Stroke Maternal Grandfather Rigo Viera Clotting disorder Mother Toshia Rosenboom Deep vein thrombosis Mother Toshia Rosenboom Factor V Leiden Mother Toshia Rosenboom Hypertension Mother Toshia Rosenboom Coronary artery disease Paternal Grandfather Karlos Lukasz grandeison Hypertension Paternal Grandfather Karlos Martinez Cancer Paternal Grandmother Adela Martinez Colon cancer Paternal Grandmother Adela Martinez Hypertension Paternal Grandmother Adela Martinez Relation Name Status Comments Father Jose Martinez Alive Father's Brother 1 Father's Brother 2 Lavell Juan Maternal Grandfather Rigo Viera (Age 82) Maternal Grandmother Alive Mother Toshia [...] on file Legal Sex Female 11:23 AM STRAP STITCHER Gender Identity Not on file Sexual Orientation [...] Comments Blood Pressure 118/81 01/26/2024 2:51 PM STRAP STITCHER Pulse 64 01/26/2024 2:51 PM STRAP STITCHER Temperature 36.2 C (97.2 F) 11/30/2022 1:05 PM CDT Respiratory Rate 16 03/06/2018 8:45 AM STRAP STITCHER Oxygen Saturation 99% 11/17/2023 9:58 AM CDT [...] this topic Medical Devices Implanted Type Area Breakfast Supervisor Device Identifier Shelf Expiration Date Model / Serial / Lot Medtronic Sofamor Danek [id number] Mastergraft Block Void Filler Substitute 20ml Bone Graft Matrix - [id number] Implanted:Qty: 1 on 03/01/2018 by Reji Marinelli MD at [facility] N/A: Spine Lumbar Medtronic Sofamor Danek [id number] 02/06/2020 [id number] / / [id number] Medtronic Inc [id number] 8.5mm 70mm Multiaxial Cannulated Thoracolumbar Screw Bone - [id number] Implanted:Qty: 1 on 03/01/2018 by Reji Marinelli MD at [facility] N/A: Spine Lumbar Medtronic Inc [id number] / / Medtronic Sofamor Danek [id number] Infuse 18mm 26mm Absorbable Sponge Sterile Water Syringe Needle - [id number] Implanted:Qty: 1 on 03/01/2018 by Reji Marinelli MD at [facility] N/A: Spine Lumbar Medtronic Sofamor Danek 07/07/2019 [id number] / / [id number] Medtronic Sofamor Danek [id number] Infuse 18mm 26mm Absorbable Sponge Sterile Water Syringe Needle - [id number] Implanted:Qty: 1 on 03/01/2018 by Reji Marinelli MD at [facility] N/A: Spine Lumbar Medtronic Sofamor Danek 07/07/2019 [id number] / / [id number] [employer] [id number] - [id number] - [id number] Implanted:Qty: 1 on 03/01/2018 by Reji Marinelli MD at [facility] N/A: Spine Lumbar [employer] 01/12/2023 [id number] / [id number] / Medtronic Sofamor Danek [id number] Solera Cd Horizon 6.5mm 50mm Multiaxial Spine Screw Bone Cocr - [id number] Implanted:Qty: 5 on 03/01/2018 by Reji Marinelli MD at [facility] N/A: Spine Lumbar Medtronic Sofamor Danek [id number] / / Medtronic Sofamor Danek [id number] 5.5mm 55mm Multiaxial Spine Screw Bone Cocr 5.5mm Demetrius - [id number] Implanted:Qty: 1 on 03/01/2018 by Reji Marinelli MD at [facility] N/A: Spine Lumbar Medtronic Sofamor Danek [id number] / / Medtronic Sofamor Danek [id number] Cd Horizon Break Off Spinal Screw Set Titanium Nonsterile 5.5 Mm - [id number] Implanted:Qty: 7 on 03/01/2018 by Reji Marinelli MD at [facility] N/A: Spine Lumbar Medtronic Sofamor Danek [id number] / / Medtronic Sofamor Danek [id number] Cd Horizon 5.5mm 500mm Line Straight Demetrius Spinal Titanium - [id number] Implanted:Qty: 1 on 03/01/2018 by Reji Marinelli MD at [facility] N/A: Spine Lumbar Medtronic Sofamor Danek [id number] / / Explanted Type Area Breakfast Supervisor Device Identifier Shelf Expiration Date Model / Serial / Lot Medtronic Sofamor Danek [id number] Solera Cd Horizon 6.5mm 55mm Multiaxial Spine Screw Bone Cocr - [id number] Explanted:Qty: 1 on 03/01/2018 at [facility] N/A: Spine Lumbar Medtronic Sofamor Danek [id number] / / Procedures Procedure Name Priority Date/Time [...] left posterior upper central breast (H55.2; series 29762, image 144). Enhancement is subthreshold for kinetics evaluation. This finding is best seen on the second and third postcontrast sequences. There is no T2 hyperintense correlate. Given limitations as above, there is no suspicious enhancing mass or non-mass enhancement in the RIGHT breast. No abnormally enlarged lymph nodes are identified in the visualized portions of either axilla. Procedure Note Amnita Mac MD - 04/17/2024 EXAMINATION: 1. MRI [...] left posterior upper central breast (H55.2; series 02978, image 144). Enhancement is subthreshold for kinetics [...] it. Electronically signed by: Aminta Mac M.D. Xiao Gaxiola MD IMG MRI PROCEDURES Final Resu lt * COLONOSCOPY (11/30/2022 12:27 PM CDT) Anatomical Region Laterality Modality Other Narrative Procedure Note Miles Lopez MD - 11/30/2022 12:27 PM CDT ENDOSCOPY LAB Patient Name: Humaira English Procedure Date: 11/30/2022 12:27PM Date of : 1970 Admit Type: Outpatient Age: 52 Gender: Female Attending MD: Miles Lopez M.D. Room: [facility] ENDOSCOPY ROOM 03 Note Status: Finalized Procedure: Colonoscopy Indications: Screening for colorectal malignant neoplasm, Thisis the patient's first colonoscopy Providers: Miels Lopez M.D. Referring MD: Kirk Bean M.D. [...] The scope was passed under direct vision.The [id number] was introduced through the anusand advanced to [...] business hours - Please call theNurse Coordinator: [phone] After hours, evening, nights, weekends and holidays- Please call the hospital silk winding machine operator at and ask for the GI fellow engineer/conductor. Attending Participation: I personally performed the entire [...] by: Lyndon Moore MD Geraldine Mancini MD IMG MAMMO PROCEDURES Evie l Result * Pap and High Risk HPV, reflex to Genotyping (04/29/2021 10:45 AM CDT) Thin prep (Pap test) 04/29/2021 10:45 AM CDT 05/01/2021 11:01 AM CDT Narrative PATHOLOGY [facility] - 05/04/2021 12:20 PM CDT [facility] results best viewed via link to PDF [address] [address] Tele: Estelita Jacobson MD - Electroplating Worker CYTOLOGY REPORT Note to Patients: This report [...] the details. Patient Name: HUMAIRA ENGLISH Address: [address] [place] [address] [place] [address] Gender: F : 1970 (Age: 51) Service: Location: N : [id number] [facility] #: [id number] Patient Type: [facility] SPECIMEN Taken: 04/29/2021 Reported: [...] LAB CYTOLOGY ORDERABLES F inal Result PATHOLOGY [facility] Laboratory Receiving [address] [place] [address] from Last 3 Months or Most Recently Relevant to Health Maintenance Insurance [facility] CHOICE PLUS [facility] CHOICE PLUS [facility] CHOICE PLUS [facility] CHOICE PLUS Advance Directives For more information, please contact: [phone] * Full Code (Latest Code Status on File) Date Activated Date Inactivated Comments 11/30/2022 11:16 AM 11/30/2022 5:57 PM * Full Code Date Activated Date Inactivated Comments 03/01/2018 11:28 AM 03/06/2018 7:48 PM Care Teams Delivery Table Operator Relationship Specialty Start Date End Date Mary Woodard PA [address] [place] [address] PCP - General Physician Offal Trimmer 04/23/24
== END 2024-05-02 09:18 | disposition home or self-care (01) ==
PROVIDERS: PCP Physician Assistant; Visit Provider Physician Assistant
DX: R07.89 Other chest pain (principal)
CPT/HCPCS: 78452; 93017; A9502